=== PATIENT | female | born 1935 ===

== ENCOUNTER 2025-05-07 00:15 | Inpatient (IN) | payer MEDICARE, OTHER, SELFPAY ==
[2025-05-07] VITALS (17 sets, daily range): BP systolic 135–169; BP diastolic 41–92; BMI 28.5
[2025-05-07 00:44] LABS: Glucose - Point of Care 152 mg/dl (70-99)
--- NOTE | 2025-05-07 01:07 | HPS.HSE ---
Family Physician
-
Family Physician: Mely Campuzano
Chief Complaint
-
CP / SOB
History of Present Illness
Patient is an 89y F with PMH significant for ASCVD, hypertension, DM-II and MDS who presents to in transfer from [facility] for evaluation of multivessel CAD. Patient initially presented to [facility] on 05/03 with complaints of chest pain and SOB. She was
evaluated and symptoms initially attributed to symptomatic anemia from MDS. Patient received 1 unit of PRBCs transfusion during her stay. Her troponin was significantly elevated (230 - normal < 13). A stress test was recommended and was abnormal
with patient complaining of headache, chest pain and dyspnea during the test as well. She went for cardiac catheterization on 05/06 which revealed multivessel coronary disease as well as moderate - severe aortic stenosis +/- aortic regurgitation.
Patient was transferred to for further evaluation.
At the time of my examination patient is resting comfortably. She has no complaints. She denies any current chest pain or dyspnea.
No N/V.
Patient states that she has had SOB in the past related to MDS / anemia - but has not previously had chest pain associated with this.
She does have remote history of PR in 1982.
Medical History
Past Medical History
Past Medical History: Reports Other
Additional Past Medical History:
ASCVD (PR 1982)
Paroxysmal Atrial Fibrillation
Chronic HFpEF
Aortic Stenosis
Hypertension
CKD III
DM-II
MDS
Hypothyroidism
Diverticular Disease
Glaucoma
Past Surgical History: Reports Other
Additional Past Surgical History:
Bilateral GUALBERTO
Rotator Cuff Surgery
Cholecystectomy
Partial Colectomy (Diverticular Disease)
Social History
Tobacco: Former Smoker (Quit smoking 40y ago.)
Alcohol: None
Drug: None
Family History
Family History: Not pertinent
Allergies / Home Medications
Allergies reflects when Allergies were last updated in [employer].
Home Medications with original date entered in [employer]
Allergy/Medication List:
Allergies
Allergy/AdvReac Type Severity Reaction Status Date / Time
levofloxacin (From Levaquin) Allergy Unknown Verified 05/07/25 00:23
Home Medications
amiodarone 200 mg tablet 200 mg PO DAILY 05/07/25
aspirin 81 mg capsule 81 mg PO DAILY 05/07/25
atorvastatin 40 mg tablet 40 mg PO DAILY 05/07/25
cyanocobalamin (vitamin B-12) 1,000 mcg tablet (Vitamin B-12) 1,000 mcg PO 1XD 05/07/25
darbepoetin betina-albumin 200 mcg/0.4 mL in albumin injection syringe 200 mcg 05/07/25
empagliflozin 10 mg tablet (Jardiance) 10 mg PO DAILY 05/07/25
furosemide 40 mg tablet 40 mg PO BID 05/07/25
isosorbide mononitrate 60 mg tablet,extended release 24 hr 60 mg PO DAILY 05/07/25
losartan 50 mg tablet 50 mg PO DAILY 05/07/25
metoprolol succinate 100 mg capsule sprinkle, ext. release 24 hr 100 mg PO Q12H 05/07/25
omeprazole 40 mg capsule,delayed release 40 mg PO 1XD 05/07/25
Review of Systems
-
History Source: Patient
A 12 point ROS was completed and negative except as noted: Yes
Constitutional: Denies Fever
Respiratory: Denies Cough or Trouble Breathing
Cardiac: Denies Chest Pain or Palpitations
Abdomen/GI: Denies Abdominal Pain, Nausea, Vomiting or Diarrhea
: Denies Dysuria, Frequency or Flank Pain
Musculoskeletal: Denies Joint Pain or Edema
Neurological: Denies Dizzy or Headache
Physical Exam
Vital Signs
Vital Signs
Pulse BP
66 141/92
05/07/25 00:21 05/07/25 00:21
Physical Exam
General: Other (89y F in no acute distress.)
HEENT: Moist mucous membranes and PERRLA
Respiratory: Clear; No Wheezes, Rales or Rhonchi
Cardiac: S1/S2, Regular Rhythm and Murmur (IV/ RADHA)
GI: Soft, Non Tender, Non Distended and Normal Bowel Sounds
Musculoskeletal: No Clubbing, No Cyanosis and No Edema
Neuro: AO x 3
Impression/Plan
-
A/P: Patient is an 89y F with PMH significant for ASCVD, HTN, DM-II and MDS who presents to in transfer from [facility] for evaluation of multivessel coronary disease.
ASCVD
ACS / NSTEMI
Multivessel Coronary Artery Disease
Aortic Stenosis +/- Aortic Regurgitation
- Admit to IVU for further evaluation and treatment.
- IV heparin infusion for now with multivessel coronary disease, elevated troponin, etc.
- Continue ASA, statin, etc.
- Cardiology evaluation for additional recommendations / options.
- Patient informs me that she would not be interested in any CT Surgery / open interventions.
- Pain free at present. Monitor for any new / recurrent symptoms.
MDS
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
- Check labs now. Hgb 8.3 at [facility].
- Follow H&H for any changes. No evidence of recent blood loss, etc.
- Transfuse if needed to keep Hgb > 8 given coronary disease / ACS.
Chronic HFpEF
- Stable. Patient does not appear grossly volume overloaded at present.
- Continue current PO Lasix dosing for now.
- Follow I/Os, daily weights, etc.
- Echo at [facility] with LVEF = 55-60% and moderate .
Benign Hypertension
- Continue current med regimen with holding parameters.
DM-II
- Stable. Hold low-dose Lantus while NPO.
- SSI coverage as needed. Update A1C.
Hypothyroidism
- Stable. Continue T4 supplementation.
Possible UTI
- Patient on ceftriaxone at [facility] for abnormal urinalysis.
- No culture results noted in records.
- Patient denies any urinary symptoms / complaints.
- Repeat UA +/- culture.
Glaucoma
- Continue usual eye drops.
DVT Prophylaxis: On IV Heparin at present.
Code Status: Full
--- NOTE | 2025-05-07 01:30 | PTCARENOTE ---
Received patient from EMS. Report never received from [facility], called for report following patients arrival. SR on the monitor, HR in the 50s. VSS, 2L nasal cannula for comfort. Alert and oriented. Oriented pt to room and plan of care, pt
verbalizes understanding. R radial and brachial cath sites CDI. No complaints from pt at this time, call quesada within reach.
[2025-05-07] MEDS: HEPARIN 4000 UNITS IV (01:52)
[2025-05-07] MEDS: TOPROL XL 50 MG PO ×2 (01:53→14:05)
[2025-05-07] MEDS: HEPARIN 25000 UNITS/250 ML IV (01:54)
[2025-05-07 02:49] LABS: APTT 33.9 Sec (23.4-35.0); Hematocrit 24.6 % (37.0-47.0); Hemoglobin 7.2 g/dL (12.0-16.0); Mean Corp Hgb Conc. 29.3 g/dL (33.0-37.0); Mean Corpuscular Volume 101.7 fL (81.0-99.0); Platelet Count 160 10^3/uL (130-400); Red Cell Dist. Width 23.6 % (11.5-14.5)
[2025-05-07 02:54] LABS: Blood Urea Nitrogen 25 mg/dl (7-17); Calcium 8.1 mg/dl (8.4-10.2); Carbon Dioxide 23 mmol/L (22-30); Chloride 113 mmol/L (98-107); Estimated Creatinine Clearance 28 ml/min; Glucose 138 mg/dl (70-99); HDL Cholesterol 23 mg/dl; LDL Cholesterol, Calculated 19 mg/dl; Potassium 3.7 mmol/L (3.5-5.1); Sodium 144 mmol/L (135-145); Very Low Density Lipoprotein 28 mg/dl (0-30); eGFR 39.55
--- NOTE | 2025-05-07 03:13 | W.PN.UPDATE ---
Update Note
Progress Note Update
hgb 7.2, vital signs within baseline, no signs of bleeding. Blood consent signed, type and screen and one unit of blood ordered .
[2025-05-07 03:16] LABS: Troponin I 0.380 ng/ml
[2025-05-07] MEDS: TYLENOL 650 MG PO (04:03)
[2025-05-07] MEDS: SYNTHROID 50 MCG PO (06:32)
--- NOTE | 2025-05-07 07:35 | CON.CAR ---
Addendum entered and electronically signed by Jf Dhaliwal MD 05/07/25 11:03:
89-year-old woman transferred from [facility] for further evaluation in the setting of moderate to severe aortic stenosis and multivessel CAD including left main disease. Hemoglobin 7.2 on transfer. 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
hypothyroidism, glaucoma
Current medications: Aspirin 81 mg a day, IV heparin, amiodarone 200 mg a day, atorvastatin 40 mg a day, furosemide 40 mg p.o. twice daily, metoprolol ER 50 mg every 12, isosorbide mononitrate, Xalatan, levothyroxine, timolol, pantoprazole
149/48, pulse 71, resp rate 20, afebrile, pleasant, no acute distress states she is dyspneic when walking aortic stenosis murmur, JVD okay, not much edema abdomen benign, neuro nonfocal, musculoskeletal intact.
ECG sinus rhythm, inferior UT, probable anterior UT, left axis
Hemoglobin 7.2, MCV is 101.7, platelets are 160, normal WBC, potassium 3.7, BUN and creatinine are 25 and 1.3, free T4 is 1.82, troponin is 0.38 and 0.28, LDL is 19
Echocardiogram 08/2023: EF 55%, distal septal and apical hypokinesis, normal RV, dilated left atrium, severe MAC, mean gradient 2.5 mmHg, trace MR, mild to moderate aortic stenosis, mean gradient 18 mmHg, normal pulmonary artery systolic pressure
Impression:
Multivessel and left main coronary artery disease
Elevated troponin/non-ST segment elevation UT
Moderate to severe aortic stenosis
Paroxysmal atrial fibrillation in sinus rhythm on amiodarone, not anticoagulated
Transfusion dependent myelodysplasia
Chronic HFpEF
Hypothyroidism, hypertension, hyperlipidemia, diabetes, diverticulitis, hip replacement, recent parainfluenza
Plan:
She presents with a very complex picture of multivessel and left main coronary disease with aortic stenosis, which in the absence of multiple comorbidities would be best managed with SAVR and CABG. However, she is very clear she does not want
surgery, and in addition age, MDS with transfusion dependent anemia functional status may likely make surgery a prohibitive risk.
At present she has no chest discomfort, has some dyspnea on exertion. She is on oral furosemide will check proBNP. Volume status remains somewhat overloaded will give IV Lasix x 1 in concert with her transfusion.
Spironolactone may be an option. SGLT2 antagonist could be an option.
Continue IV heparin.
Patient to get transfused.
We will review her most recent echocardiogram.
Will await evaluation by CT surgery and interventional cardiology.
Original Note:
Consultation
Consultation Request
Date/Time Consultation Performed: 05/07/25
Requesting Provider: Dr. Gibbs
Performing Provider: Shayy Sunshine PA-C for Dr. JACQUE Dhaliwal
Reason for Consultation: MV CAD,
Medical History
-
Chief Complaint: MV CAD
History of Present Illness:
Patient is an 89-year-old female with past medical history of UT in 1982 without revascularization, paroxysmal atrial fibrillation on chronic amiodarone, MDS requiring periodic transfusions, not anticoagulated due to MDS and frequent falls, chronic
heart failure with preserved EF, moderate to severe , recent parainfluenza, hypothyroidism, who is followed by [facility] cardiology. She then presented to [facility] on 05/03/2025 with chest discomfort and shortness of breath. Initially acute
on chronic symptomatic anemia was felt to be etiology of her symptoms and received transfusion. GI had also evaluated patient and she was not felt to have any active GI bleeding. As troponins were significantly elevated, she underwent stress
testing which was noted to be abnormal with patient complaining of chest discomfort and dyspnea during the test. She then underwent cardiac catheterization by Dr. Cronin on 05/06/2025 which revealed multivessel coronary artery disease including
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 Due to this patient was transferred to [facility] last
evening for evaluation of treatment options for MV CAD and . She denies current chest pain or shortness of breath. Currently receiving blood transfusion, hemoglobin 7.2 on 05/07.
PMH:
CAD
Remote UT in 1982 without revascularization
Chronic angina
Paroxysmal atrial fibrillation
Chronic amiodarone therapy
Not anticoagulation candidate given chronic anemia, frequent falls
MDS requiring periodic transfusions
Chronic heart failure with preserved EF
Moderate to severe
Hypothyroidism
Hypertension
Hyperlipidemia
DM2
Recurrent diverticulitis status post partial colon resection
Fall with left knee fracture status postrepair
Bilateral total hip replacements
Recent parainfluenza requiring admission to [facility] 03/2025
Past Medical History
Past Medical History: Other (in HPI)
Social History
Tobacco: Non-Smoker
Alcohol: None
Personal:
Living: With Family
Family History
Family History: CAD (in father and brothers)
Allergies / Home Medications
Allergy/AdvReac Type Severity Reaction Status Date / Time
levofloxacin (From Levaquin) Allergy Unknown Verified 05/07/25 00:23
�Medication �Instructions �Recorded �Confirmed �Type
amiodarone 200 mg tablet 200 mg PO DAILY 05/07/25 05/07/25 History
aspirin 81 mg capsule 81 mg PO DAILY 05/07/25 05/07/25 History
atorvastatin 40 mg tablet 40 mg PO DAILY 05/07/25 05/07/25 History
cyanocobalamin (vitamin B-12) 1,000 mcg PO 1XD 05/07/25 05/07/25 History
1,000 mcg tablet (Vitamin B-12)
empagliflozin 10 mg tablet 10 mg PO DAILY 05/07/25 05/07/25 History
(Jardiance)
furosemide 40 mg tablet 40 mg PO BID 05/07/25 05/07/25 History
isosorbide mononitrate 60 mg 60 mg PO DAILY 05/07/25 05/07/25 History
tablet,extended release 24 hr
losartan 50 mg tablet 50 mg PO DAILY 05/07/25 05/07/25 History
metoprolol succinate 100 mg 100 mg PO Q12H 05/07/25 05/07/25 History
capsule sprinkle, ext. release 24
hr
omeprazole 40 mg capsule,delayed 40 mg PO 1XD 05/07/25 05/07/25 History
release
Review of Systems
-
History Source: Patient
All other systems: Negative unless noted
Physical Exam
Vital Signs
Temp Pulse Resp BP Pulse Ox
98.1 F 72 20 151/46 90
05/07/25 07:05 05/07/25 06:41 05/07/25 07:05 05/07/25 06:41 05/07/25 07:05
Lab Results
05/07/25 01:46
05/07/25 01:46
Troponin I 0.380 ng/ml H* 05/07/25 01:46
Physical Exam
General: No Apparent Distress and Comfortable
HEENT: Normocephalic, Anicteric and Moist Mucous Membranes
Respiratory: Crackles (B/L bases) and Non Labored Respirations
Cardiac: S1/S2, Regular Rhythm and Murmur
GI: Soft, Non Tender, Non Distended and Normal Bowel Sounds
Musculoskeletal: No Clubbing, No Cyanosis and Edema (trace of B/L LE)
Skin: Warm and Dry
Neuro: AO x 3
Impression / Plan
-
Primary Occupational Health Nursing Director: Previously Dr. Zhou, most recently Dr. Reyes
Assessment:
Presentation to [facility] 05/03/25 with CP, dyspnea
UTI
CAD
Remote UT in 1982 without revascularization
Chronic angina
MV CAD by cath 05/06/25 at [facility]
Paroxysmal atrial fibrillation
Chronic amiodarone therapy
Not anticoagulation candidate given chronic anemia, frequent falls
MDS requiring periodic transfusions
Chronic heart failure with preserved EF
Moderate to severe
Hypothyroidism
Hypertension
Hyperlipidemia
DM2
CKD
Recurrent diverticulitis status post partial colon resection
Fall with left knee fracture status postrepair
Bilateral total hip replacements
Recent parainfluenza requiring admission to [facility] 03/2025
Myoview stress test 05/06/2025: Resting study only performed on patient. After injection, patient developed 04/19 chest pressure and dyspnea with EKG changes. Resting imaging showed evidence of dense apical defect at rest
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
Echocardiogram 05/04/2025: EF 55 to 60%, grade 2 diastolic dysfunction, abnormal apex, moderate , moderate thickening and calcification of posterior mitral valve leaflet with mild MS
Plan:
-Patient was admitted to [facility] 05/03/2025 due to chest pain and dyspnea in setting of recent parainfluenza and was noted to have acute on chronic anemia. Also had elevated troponin with initial concern for demand ischemia due to
worsening hemoglobin status post transfusion, however with elevated troponins underwent stress testing however only resting portion completed as with injection patient developed symptoms of chest pressure and dyspnea with associated EKG changes and
resting imaging showed dense apical defect. Underwent cardiac catheterization 05/06 which showed multivessel coronary disease as above as well as moderate to severe low gradient . Patient was transferred to [facility] 05/06/2025 for
evaluation of treatment options for coronary artery and valve disease.
- reviewed all available records from [facility] admission including testing as noted above
- Currently chest pain-free
- On IV heparin, aspirin
- Hemoglobin 7.2, receiving transfusion. She is followed as outpatient by Dr. Alvarado of [facility] heme/onc
- Check proBNP. Suspect remains with evidence of volume overload. Currently on outpatient dosing of p.o. Lasix 40 mg twice daily. will hold p.o. and give IV dose in setting of extra volume with transfusion
- we discussed results of cardiac catheterization today. reviewed plan for multidisciplinary discussions regarding best treatment options. reviewed that she is higher risk for interventions given comorbidities including MDS requiring periodic
transfusions. plt count noted to be normal. she states she does not want bypass surgery. will await options offered by CT surgery and IC and can determine best way to proceed. at this point appears she is leaning toward medical therapy
- in SR on review of tele. continue amiodarone. she is not anticoagulated given falls and MDS with chronic anemia
- continue toprol, imdur
- continue lipitor
- d/w nursing
Data Reviewed
-
EKG: Tracing Personally Visualized and interpreted
Medical Tests (Nuc Med, Echo etc): Report Reviewed by me
Labs: Labs Reviewed by me
Old Records: Reviewed
[2025-05-07] MEDS: PACERONE 200 MG PO (07:59)
[2025-05-07] MEDS: PROTONIX 40 MG PO (07:59)
[2025-05-07] MEDS: LASIX 40 MG PO (07:59)
[2025-05-07] MEDS: LOW STRENGTH ASPIRIN 81 MG PO (07:59)
[2025-05-07] MEDS: IMDUR (EXTENDED RELEASE) 60 MG PO (08:00)
[2025-05-07] MEDS: LIPITOR 40 MG PO (08:00)
[2025-05-07] MEDS: TIMOPTIC 0.5% OPHTHALMIC SOLUTION 1 DROP BOTH EYES (08:01)
[2025-05-07 08:42] LABS: APTT 73.4 Sec (23.4-35.0)
[2025-05-07 08:54] LABS: Glucose - Point of Care 130 mg/dl (70-99)
[2025-05-07 09:00] LABS: Troponin I 0.278 ng/ml
[2025-05-07 09:08] LABS: Absolute Neutrophils -Man Diff 4.8 10^3/uL (1.4-6.5)
[2025-05-07 09:09] LABS: Anisocytosis 2+; Hypochromasia 1+; Macrocytosis Slight; Normal RBC Morphology No; Ovalocytes Slight; Platelets Checked Yes; Polychromasia Slight; Total Cells Counted 100
[2025-05-07 09:59] LABS: Glycohemoglobin (HgbA1c) 5.2 % (4.0-5.6)
--- NOTE | 2025-05-07 10:41 | CM ---
Reviewed chart. Met with Mrs. Lomeli to review discharge plans. She states prior to admission she resides with her spouse and son in a one story home with three steps to enter. She states prior to admission she ambulates with a single point
cane and independent with adls. She states she has a single point cane, walker and wheelchair at home. She states she is current with [facility]. She states she has a prescription plan with . Will need to see her current
functional level to see if she will need any skilled care needs. Medical work-up in progress. The discharge plan is to return home with her spouse and son with res[facility] of [facility] when medically stable. .
[2025-05-07] MEDS: NOVOLOG FLEXPEN-LOW RESISTANCE SC ×2 (10:49→12:45)
[2025-05-07] MEDS: LASIX 40 MG IV (10:57)
--- NOTE | 2025-05-07 11:29 | CON.ONC ---
Consultation
-
Date Consultation Requested: 05/07/25
Date Consultation Performed: 05/07/25
Requesting Provider: Shayy Beach PA-C
Performing Provider: Dr. Kadeem Ortiz
Reason for Consultation: MDS
Impression
Impression
CAD with multivessel disease a/w abnormal stress test
frequent falls
MDS diagnoed 3 years ago -PRBC dependent anemia
Plan
Plan
recommend transfuse PRBC for Hgb <8 with CAD and hx symptomatic anemia
no contraindication for antiplatelet or anticoagulation from a MDS perspective with normal platelets and absence of bleeding
she will continue with OP labs for prn transfusion support and LANDRY with her primary oncologist at discharge
no further inpatient recommendations, medical oncology will sign off. please reach out with any further questions or concerns.
Patient History
History of Present Illness
89yo F who presented to as a transfer for evaluation of multivessel disease. She initially presented with SOB and chest pain to [facility]. Her symptoms did not improve with PRBC transfusion. Her troponin was significally elevated, stress test was
abnormal with c/o headach, chest pain and dyspenea during her testing. Her cardiac catheterization on 05/06 showed multivessel coronary disease as well as moderate - severe aortic stenosis +/- aortic regurgitation. Medical oncology is consulted
regarding her MDS.
In brief, this pt is known to [facility] medical oncology. She tells me that she was diagnosed 3 years ago with MDS. She has labs checked at home 1-2 da/week that are reviewed by her primary oncologist. She is treated with LANDRY, IV iron prn, and
transfusion support prn for her anemia. She also takes B12 and folic acid. Her CBC shows a normal WBC and platelet count.
Past-Medical/Surgical History
PMH ASCVD ([place] 1982)
Paroxysmal Atrial Fibrillation
Chronic HFpEF
Aortic Stenosis
Hypertension
CKD III
DM-II
MDS
Hypothyroidism
Diverticular Disease
Glaucoma
PSH
Bilateral GUALBERTO
Rotator Cuff Surgery
Cholecystectomy
Partial Colectomy (Diverticular Disease)
Social former smoker, denies etoh or recreational drugs
Family
Patient Medication
�Medication �Instructions �Recorded �Confirmed �Last Taken �Type
amiodarone 200 mg tablet 200 mg PO DAILY 05/07/25 05/07/25 Unknown History
aspirin 81 mg capsule 81 mg PO DAILY 05/07/25 05/07/25 Unknown History
atorvastatin 40 mg tablet 40 mg PO DAILY 05/07/25 05/07/25 Unknown History
cyanocobalamin (vitamin B-12) 1,000 mcg PO 1XD 05/07/25 05/07/25 Unknown History
1,000 mcg tablet (Vitamin B-12)
empagliflozin 10 mg tablet 10 mg PO DAILY 05/07/25 05/07/25 Unknown History
(Jardiance)
furosemide 40 mg tablet 40 mg PO BID 05/07/25 05/07/25 Unknown History
isosorbide mononitrate 60 mg 60 mg PO DAILY 05/07/25 05/07/25 Unknown History
tablet,extended release 24 hr
losartan 50 mg tablet 50 mg PO DAILY 05/07/25 05/07/25 Unknown History
metoprolol succinate 100 mg 100 mg PO Q12H 05/07/25 05/07/25 Unknown History
capsule sprinkle, ext. release 24
hr
omeprazole 40 mg capsule,delayed 40 mg PO 1XD 05/07/25 05/07/25 Unknown History
release
Active Medications
Generic Name Dose Route Start Last Admin
Trade Name Freq PRN Reason Stop Dose Admin
Acetaminophen 650 mg 05/07/25 01:25 05/07/25 04:03
Acetaminophen 325 Mg Tablet PO 06/04/25 01:24 650 mg
Q4HPRN PRN Administration
Mild Pain / Temp > 101
Amiodarone HCl 200 mg 05/07/25 08:00 05/07/25 07:59
Amiodarone 200 Mg Tablet PO 06/04/25 07:59 200 mg
DAILY KATE Administration
Aspirin 81 mg 05/07/25 08:00 05/07/25 07:59
Aspirin 81 Mg Chewable Tablet PO 06/04/25 07:59 81 mg
DAILY KATE Administration
Atorvastatin Calcium 40 mg 05/07/25 08:00 05/07/25 08:00
Atorvastatin (Lipitor) 40 Mg Tablet PO 06/04/25 07:59 40 mg
DAILY KATE Administration
Dextrose 12.5 grams 05/07/25 01:25
Dextrose 50% (0.5 Grams/Ml) 50 Ml Syringe IV 06/04/25 01:24
[id number] PRN
hypoglycemia
Protocol
Furosemide 40 mg 05/07/25 08:00 05/07/25 07:59
Furosemide 40 Mg Tablet PO 06/04/25 07:59 40 mg
On Hold: 05/07/25 10:32 BID KATE Administration
Glucagon 1 mg 05/07/25 01:25
Glucagon 1 Mg Vial IM 06/04/25 01:24
PRN PRN
hypoglycemia
Protocol
Heparin Sodium 25,000 units in 250 mls @ 0 mls/hr 05/07/25 01:30 05/07/25 01:54
Heparin 36795 Units/250 Ml IV 250 mls
PER PROTOCOL KATE Administration
Protocol
Per Protocol
Insulin Aspart 0 units 05/07/25 07:30 05/07/25 10:49
Insulin Aspart Low Resistance 300 Units/3 Ml Pen.Injctr SC 06/04/25 07:29 Not Given
AC KATE
Protocol
Isosorbide Mononitrate 60 mg 05/07/25 08:00 05/07/25 08:00
Isosorbide Mononitrate 60 Mg Extended Release Tablet PO 06/04/25 07:59 60 mg
DAILY KATE Administration
Latanoprost 0 drop 05/07/25 22:00
Latanoprost 0.005% (Ophthalmic Solution) 2.5 Ml Bottle BOTH EYES 06/04/25 21:59
HS KATE
Levothyroxine Sodium 50 mcg 05/07/25 06:00 05/07/25 06:32
Levothyroxine 50 Mcg Tablet PO 06/04/25 05:59 50 mcg
DAILY @ 0600 KATE Administration
Metoprolol Succinate 50 mg 05/07/25 02:00 05/07/25 01:53
Metoprolol 50 Mg Extended Release Tablet PO 06/04/25 01:59 50 mg
Q12H KATE Administration
Morphine Sulfate 2 mg 05/07/25 01:25
Morphine 2 Mg/Ml Syringe IV 05/21/25 01:24
Q4HPRN PRN
Severe Pain
Nitroglycerin 0.4 mg 05/07/25 01:25
Nitroglycerin 0.4 Mg Sl Tablet SL 06/04/25 01:24
[id number] PRN
Chest Pain
Pantoprazole Sodium 40 mg 05/07/25 08:00 05/07/25 07:59
Pantoprazole 40 Mg Delayed Release Tablet PO 06/04/25 07:59 40 mg
DAILY KATE Administration
Timolol Maleate 0 drop 05/07/25 08:00 05/07/25 08:01
Timolol 0.5% (Ophthalmic Solution) Bottle BOTH EYES 06/04/25 07:59 1 drop
DAILY KATE Administration
Review of Systems
-
ROS is notable for HPI, otherwise negative
Physical Exam
-
General: No Apparent Distress
HEENT: Moist Mucous Membranes; Negative Jaundice
Pulmonary: Other (unlabored)
GI: Soft
Extremities: Pulses Present and Edema (trace ankle)
Neurology: Non Focal
Skin: Warm
Psych: Calm
Labs
Lab Results
WBC 6.8 10^3/uL (4.8-10.8) 05/07/25 01:46
RBC 2.42 10^6/uL (4.20-5.40) L 05/07/25 01:46
Hgb 7.2 g/dL (12.0-16.0) L 05/07/25 01:46
Hct 24.6 % (37.0-47.0) L 05/07/25 01:46
MCV 101.7 fL (81.0-99.0) H 05/07/25 01:46
MCH 29.8 pg (27.0-31.0) 05/07/25 01:46
MCHC 29.3 g/dL (33.0-37.0) L 05/07/25 01:46
RDW 23.6 % (11.5-14.5) H 05/07/25 01:46
Plt Count 160 10^3/uL (130-400) 05/07/25 01:46
MPV 12.7 fL (7.4-10.4) H 05/07/25 01:46
Creatinine 1.3 mg/dL (0.6-1.0) H 05/07/25 01:46
Creatinine Cancelled 05/07/25 01:46
Vital Signs
Vital Signs
Temp Pulse Resp BP Pulse Ox
98.4 F 67 18 148/51 95
05/07/25 10:16 05/07/25 11:00 05/07/25 10:16 05/07/25 11:00 05/07/25 10:16
[2025-05-07 11:38] LABS: Glucose - Point of Care 129 mg/dl (70-99)
[2025-05-07 11:50] LABS: Urine Character Clear (Clear)
--- NOTE | 2025-05-07 12:28 | W.PN.HOSP.TC ---
Today's Communication/Plan
-
ACS protocol. Blood transfusion.
Assessment / Plan
Assessment / Plan
Physical exam:
General: Acute on chronically ill
HEENT: Normocephalic, Atraumatic and Moist Mucous Membranes
Respiratory: Clear to Auscultation; Negative Wheezes, Rales or Rhonchi
Cardiac: Regular Rhythm and S1/S2
GI: Soft, Nontender and Nondistended
Musculoskeletal: No Clubbing, No Cyanosis and No Edema
Neuro: Awake, Alert and Oriented, no neurological deficit
Psych: Calm
A/P:
ASCVD
ACS / NSTEMI
Multivessel Coronary Artery Disease
Aortic Stenosis +/- Aortic Regurgitation
- Admit to IVU for further evaluation and treatment.
- IV heparin infusion for now with multivessel coronary disease, elevated troponin, etc.
- Continue ASA, statin, etc.
- Cardiology evaluation for additional recommendations / options. Cardiology evaluated the patient today and it appears that she is leaning towards medical management.
- Patient informs me that she would not be interested in any CT Surgery / open interventions.
- Pain free at present. Monitor for any new / recurrent symptoms.
MDS
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
- Check labs now. Hgb 8.3 at [facility]. Follow-up hemoglobin 7.2. Blood transfusion ordered for today. Hematology consulted and noticed that she is blood transfusion dependent.
- Follow H&H for any changes. No evidence of recent blood loss, etc.
- Transfuse if needed to keep Hgb > 8 given coronary disease / ACS.
Chronic HFpEF
- Stable. Patient does not appear grossly volume overloaded at present.
- On hold PO Lasix dosing for now. IV Lasix given this morning by cardiology.
- Follow I/Os, daily weights, etc.
- Echo at [facility] with LVEF = 55-60% and moderate .
Benign Hypertension
- Continue current med regimen with holding parameters.
DM-II
- Stable. Hold low-dose Lantus while NPO.
- SSI coverage as needed. Update A1C.
Hypothyroidism
- Stable. Continue T4 supplementation.
Possible UTI
- Patient on ceftriaxone at [facility] for abnormal urinalysis.
- No culture results noted in records.
- Patient denies any urinary symptoms / complaints.
- Repeat UA +/- culture.
- Will likely stop antibiotics and observe off antimicrobial
Glaucoma
- Continue usual eye drops.
DVT Prophylaxis: On IV Heparin at present.
Code Status: Full
Time spent 35 minutes
Anticipated Discharge: > 48 hours
Subjective/Interval History
-
Date of Service: May 07, 2025
Patient still having some shortness of breath earlier this morning. No chest pain. Afebrile
Objective Data
-
Labs:
Laboratory Results
05/07/25 05/07/25 05/07/25
01:45 01:46 01:46
WBC Cancelled 6.8
Hgb Cancelled 7.2 L
Hct Cancelled 24.6 L
Plt Count Cancelled 160
APTT 33.9
Sodium Cancelled 144
Potassium Cancelled
Chloride
Carbon Dioxide
BUN
Creatinine
Glucose
Calcium
05/07/25 05/07/25 05/07/25
01:46 01:46 01:46
WBC
Hgb
Hct
Plt Count
APTT
Sodium
Potassium 3.7
Chloride Cancelled 113 H
Carbon Dioxide Cancelled 23
BUN Cancelled
Creatinine
Glucose
Calcium
05/07/25 05/07/25 05/07/25
01:46 01:46 01:46
WBC
Hgb
Hct
Plt Count
APTT
Sodium
Potassium
Chloride
Carbon Dioxide
BUN 25 H
Creatinine Cancelled 1.3 H
Glucose Cancelled 138 H
Calcium Cancelled
05/07/25 05/07/25 05/07/25
01:46 08:21 14:30
WBC
Hgb
Hct
Plt Count
APTT 73.4 H Pending
Sodium
Potassium
Chloride
Carbon Dioxide
BUN
Creatinine
Glucose
Calcium 8.1 L
Vital Signs:
Vital Signs
Temp Pulse Resp BP Pulse Ox
98.4 F 67 18 148/51 95
05/07/25 10:16 05/07/25 11:00 05/07/25 10:16 05/07/25 11:00 05/07/25 10:16
I&O
05/06/25 05/07/25 05/08/25
06:59 06:59 06:59
Intake Total 0 / 0 525 / 525
Output Total 450 / 450
Balance 0 / 0 75 / 75
[2025-05-07 14:28] LABS: APTT 46.4 Sec (23.4-35.0)
--- NOTE | 2025-05-07 16:40 | CARDSERVLU ---
Echocardiogram with Lumason completed after protocol screening completed. Allergies verified.
Patent IV site: _R hand____
IV site flushed with 0.9% NaCl pre and post administration.
Diluted bolus method utilized to enhance visualization of ventricular disla.
Total volume given: __4__ mL
Patient tolerated all procedures well without complications.
[2025-05-07 16:47] LABS: Glucose - Point of Care 152 mg/dl (70-99)
[2025-05-07] MEDS: NOVOLOG FLEXPEN-LOW RESISTANCE 1 UNITS SC (18:35)
--- NOTE | 2025-05-07 19:02 | PTCARENOTE ---
~0223-4277: Handoff report received from [facility] RN. Pt Aox4, forgetful at times, Baseline L facial droop present as residual from hx of CVA, NSR 1st degree AVB 60s-80s on tele, + murmur present, SBP 150s, RA satting 95%, crackles at bases. Pt
does not c/o pain at this time. Ax1 to bathroom with walker. PRBC infusing at start of shift and finished around 1015, VS remained stable. Shayy Sunshine PA-C at bedside to discuss options with patient and informed this RN as well. Update given to
daughter via phonecall. Heparin gtt infusing at this time. Bloodwork drawn and sent to lab. PTT therapeutic at this time. UA sent to lab. All needs met at this time, call quesada within reach.
~7022-7405: IV lasix given per order post transfusion completion. Bloodwork drawn and sent to lab. PTT resulted and heparin gtt titrated per protocol. ProBNP 7840, Shayy Sunshine PA-C made aware. Family at bedside and patient informed this RN that
Dr. Morales wanted to talk to family, informed Dr. Morales of their arrival. Patient resting comfortably in the chair at this time.
~[id number]: ECHO completed.
~[id number]: Patient Ax1 with walker to to bathroom. heparin gtt remains infusing. VSS. All needs met at this time, call quesada within reach. handoff report given to [facility] RN.
--- NOTE | 2025-05-07 20:45 | PTCARENOTE ---
Assumed care at 1900. Patient alert and oriented x4. Forgetful at times. Patient denies any pain or shortness of breath. Patient remains normal sinus rhythm on tele. Heparin gtt infusing as ordered. Ambulated to bathroom with walker and standby
assist. Tolerated well. Patient aware of plan of care. Call quesada and personal belongings within reach.
[2025-05-07] MEDS: XALATAN OPHTHALMIC SOLUTION 1 DROP BOTH EYES (21:22)
[2025-05-07 21:47] LABS: APTT 67.9 Sec (23.4-35.0)
[2025-05-07 22:19] LABS: Glucose - Point of Care 174 mg/dl (70-99)
[2025-05-08] VITALS (18 sets, daily range): BP systolic 132–167; BP diastolic 41–63; BMI 27.9
[2025-05-08] MEDS: TOPROL XL 50 MG PO ×3 (03:06→20:24)
[2025-05-08] MEDS: HEPARIN 25000 UNITS/250 ML IV (03:08)
[2025-05-08] MEDS: TYLENOL 650 MG PO ×2 (04:44→20:23)
[2025-05-08 05:06] LABS: APTT 100.0 Sec (23.4-35.0)
[2025-05-08 05:10] LABS: Hematocrit 28.8 % (37.0-47.0); Hemoglobin 8.8 g/dL (12.0-16.0); Mean Corp Hgb Conc. 30.6 g/dL (33.0-37.0); Mean Corpuscular Volume 99.7 fL (81.0-99.0); Platelet Count 173 10^3/uL (130-400); Red Cell Dist. Width 22.5 % (11.5-14.5)
[2025-05-08 05:26] LABS: Blood Urea Nitrogen 20 mg/dl (7-17); Calcium 8.3 mg/dl (8.4-10.2); Carbon Dioxide 24 mmol/L (22-30); Chloride 113 mmol/L (98-107); Estimated Creatinine Clearance 30 ml/min; Glucose 155 mg/dl (70-99); Magnesium 2.1 mg/dl (1.6-2.3); Potassium 3.8 mmol/L (3.5-5.1); Sodium 143 mmol/L (135-145); eGFR 43.54
[2025-05-08] MEDS: SYNTHROID 50 MCG PO (06:27)
--- NOTE | 2025-05-08 08:14 | W.PN.UPDATE ---
Update Note
Progress Note Update
Interventional cardiology update note
I sat down and spoke with patient as well as her family multiple times on May 07, 2025 discussing her coronary anatomy, her presentation and discussing possible treatment options including medical therapy only versus high risk complex PCI versus
coronary artery bypass grafting.
We agree that with her advanced age and other significant comorbid conditions that she would not be a good coronary artery bypass grafting candidate and patient would prefer not to have open heart surgery anyway.
In discussion about medical therapy only versus high risk complex PCI with possible atherectomy and need for dual antiplatelet therapy for at least 1 year our discussions included the fact that she has transfusion dependent anemia due to her
underlying MDS though her platelet counts are normal that we would initially want input from hematology and oncology in regards to overall prognosis and safety of dual antiplatelet therapy and high risk procedures. Secondly, if patient were to even
consider excepting the risk of a high risk procedure and want aggressive interventions we would want to trial her at least on 2 weeks of dual antiplatelet therapy to make sure that she is able to maintain her blood counts. With her underlying
moderate to severe aortic stenosis, there is a good chance that we may have to use Impella support given possibility/need for atherectomy and in the setting we would also want to pursue a CTA of abdomen and pelvis to make sure that her iliofemoral
arteries would allow for Impella placement safely.
I would also work on getting her hemoglobin close to 10 in the setting of severe underlying coronary artery disease and advocate for more blood transfusions.
After discussing all of the risk and benefits of each of the approach, patient and family for now leaning towards aggressive medical therapy excepting a higher risk of Mace events with this approach.
We will work on optimizing medications with close monitoring of her blood counts and work on discharge planning.
Valentine Morales MD, [facility], [facility]
Total time spent: 55
--- NOTE | 2025-05-08 08:38 | W.PN.HOSP.TC ---
Today's Communication/Plan
-
IV Lasix. DAPT. Blood transfusion
Assessment / Plan
Assessment / Plan
Physical exam:
General: Acute on chronically ill
HEENT: Normocephalic, Atraumatic and Moist Mucous Membranes
Respiratory: Clear to Auscultation; Negative Wheezes, Rales or Rhonchi
Cardiac: Regular Rhythm and S1/S2, systolic murmur
GI: Soft, Nontender and Nondistended
Musculoskeletal: No Clubbing, No Cyanosis and No Edema
Neuro: Awake, Alert and Oriented, no neurological deficit
Psych: Calm
A/P:
NSTEMI:
Multivessel CAD by cath on 05/06 at [facility]
Stop Heparin drip today
Started on dual antiplatelet therapy, beta-blockers, nitrates, and statins
After several discussions, patient would like to pursue medical management for now. No CABG at all and PCI still on debate and wants to hold on CTA abdomen.
Discussed with cardiology in person today who would like to transfuse blood again to keep goal of hemoglobin at or above 10
Acute on chronic diastolic congestive heart failure:
IV Lasix 40 mg this morning
Hold oral Lasix for now
Monitor ins and outs and daily weights
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
Cardiology consulted hematology and input appreciated.
Status post blood transfusion yesterday 05/07
Will transfuse again another unit today at cardiology request-hemoglobin 8.8 today and goal closer to 10
Might require IV Lasix later today
Paroxysmal atrial fibrillation:
Rate control, on beta-maury
Antiarrhythmic, on amiodarone
Cardiac monitoring
Moderate to severe :
Serial echocardiograms
Hypertension:
Continue current antihypertensives
Hyperlipidemia:
Continue statin
Diabetes mellitus type 2:
Insulin sliding scale
Hypothyroidism:
Continue thyroid
Recent UTI:
Completed course of treatment
Repeated UA completely clear
Chronic kidney disease stage IIIb:
Avoid nephrotoxic
Monitor renal function
DVT prophylaxis:
SCDs
CODE STATUS:
Full code
Total time spent on today's encounter was 52 minutes which included time spent in counseling the patient/family regarding diagnosis and treatment plan as listed above, goals of care, and symptom management. Case was discussed with nursing staff,
specialists, and care coordinators/case management. All labs and imaging personally reviewed by me. Remainder the time spent in detailed review of previous records, lab data, imaging, and other medical provider documentation.
Anticipated Discharge: > 48 hours
Subjective/Interval History
-
Date of Service: May 08, 2025
Patient feels better overall. Less shortness of breath. No chest pain. Afebrile
Objective Data
-
Labs:
Laboratory Results
05/07/25 05/08/25 05/08/25
21:20 04:41 10:45
WBC 6.9
Hgb 8.8 L D
Hct 28.8 L
Plt Count 173
APTT 67.9 H 100.0 H Pending
Sodium 143
Potassium 3.8
Chloride 113 H
Carbon Dioxide 24
BUN 20 H
Creatinine 1.2 H
Glucose 155 H
Calcium 8.3 L
Vital Signs:
Vital Signs
Temp Pulse Resp BP Pulse Ox
98.2 F 77 20 154/51 94
05/08/25 07:08 05/08/25 08:15 05/08/25 07:08 05/08/25 07:07 05/08/25 07:08
I&O
05/07/25 05/08/25 05/09/25
06:59 06:59 06:59
Intake Total 0 / 0 525 / 525
Output Total 1750 / 1750
Balance 0 / 0 -1225 / -1225
--- NOTE | 2025-05-08 08:51 | W.PN.CARDCBS ---
Addendum entered and electronically signed by Hao Ardon MD 05/08/25 10:12:
I saw and examined the patient.
The Corporate Communications Specialist's note was reviewed and I agree with the note.
Comment:
GEN: No distress, awake, Ox3
HEENT: supple, anicteric, mmm
LUNGS: CTA, no wheezes/rales
CV: Reg, S1/S2, 3/6 syst LSB, no gallop
ABD: soft, BS+, NT/ND
EXT: No edema
NEURO: Gross non-focal
SKIN: No rash
PLan:
No new chest pains. After lengthy discussions with interventional cardiology plan is for medical therapy today. Will load with Plavix. Continue 75 mg daily continue aspirin.
Hemoglobin improved and up to 8.8. Lasix 40 mg IV now and daily. Would give further diuretics if she needs further blood
Continue aspirin, Toprol 50 mL p.o. every 12, Imdur 60 mg daily. Would hold RAN/ARB for now.
She prefers to hold off on the CTA of the abdomen/pelvis for now as she remains unclear whether she would want PCI.
We will follow her creatinine as she does have CKD 2-3. Creatinine overall stable at 1.2
Continue amiodarone to try to maintain sinus rhythm..
Original Note:
Today's Communication / Plan
-
Stop heparin
Loaded with Plavix 300 mg x 1 today and 75 mg daily
Give additional dose of IV Lasix today, would give additional 40 mg this afternoon if she gets transfusion
Consider giving additional unit of RBC to get Hgb 10 or higher
Continue aspirin, Toprol, Imdur, statin, losartan and Jardiance
Pt on the fence about PCI. Hold on CTA abd/pelvis for now
Impression / Plan
-
Primary Frame Carver Spindle: Previously Dr. Zhou, most recently Dr. Reyes
Assessment:
Presentation to [facility] 05/03/25 with CP, dyspnea
UTI
CAD
Remote [place] in 1982 without revascularization
Chronic angina
MV CAD by cath 05/06/25 at [facility]
Paroxysmal atrial fibrillation
Chronic amiodarone therapy
Not anticoagulation candidate given chronic anemia, frequent falls
MDS requiring periodic transfusions
Chronic heart failure with preserved EF
Moderate to severe
Hypothyroidism
Hypertension
Hyperlipidemia
DM2
CKD
Recurrent diverticulitis status post partial colon resection
Fall with left knee fracture status postrepair
Bilateral total hip replacements
Recent parainfluenza requiring admission to [facility] 03/2025
Myoview stress test 05/06/2025: Resting study only performed on patient. After injection, patient developed 8/10 chest pressure and dyspnea with EKG changes. Resting imaging showed evidence of dense apical defect at rest
Cardiac catheterization 05/06/2025: Disease involving distal left main, CANDY SEPARATOR HARD of LAD with good left to left and left to right collaterals, mid circumflex and OM 3, RCA with moderate to severe low-grade
Echocardiogram 05/04/2025: EF 55 to 60%, grade 2 diastolic dysfunction, abnormal apex, moderate , moderate thickening and calcification of posterior mitral valve leaflet with mild MS
Echo 05/07/2025 with [facility]: EF 40-45%, mod-severe LVH. Moderate MS w/ mean grad 5 mmhg. Moderate peak/mean 32/19 mmhg w/ YARELIS 1.2cm2.
Plan:
-Patient was admitted to [facility] 05/03/2025 due to chest pain and dyspnea in setting of recent parainfluenza and was noted to have acute on chronic anemia. Also had elevated troponin with initial concern for demand ischemia due to
worsening hemoglobin status post transfusion, however with elevated troponins underwent stress testing however only resting portion completed as with injection patient developed symptoms of chest pressure and dyspnea with associated EKG changes and
resting imaging showed dense apical defect. Underwent cardiac catheterization 05/06 which showed multivessel coronary disease as above as well as moderate to severe low gradient . Patient was transferred to [facility] 05/06/2025 for
evaluation of treatment options for coronary artery and valve disease.
- Currently chest pain-free. Consider having pt get up and walk around unit today to assess anginal symptoms.
- Hemoglobin 7.2, got 1 unit packed RBC (05/07), hgb improved to 8.8 (05/08). Given her degree of CAD ideally would like to see Hgb of at least 10 g/dl. She is followed as outpatient by Dr. Alvarado of [facility] heme/onc
-In light of her MDS and chronic anemia discussed risks and benefits of challenging patient with dual antiplatelet therapy for 2 weeks to make sure she would be able to maintain blood counts without additional bleeding issues. Heme/Onc cleared pt
for DAPT 05/07. Give Plavix load 300 mg x 1 (05/08) then 75 mg daily after. Pt agrees to this plan
-Stop Heparin gtt given we are loading with Plavix.
- ProBNP, 6380/7840 (05/07) with evidence of volume mild overload. On outpatient dosing of p.o. Lasix 40 mg twice daily. Got IV Lasix 05/07, give an additional 40 mg IV now and would repeat additional dose later today if she gets additional blood
transfusion.
- Cardiac catheterization results reviewed with patient and family by interventionalists. Multidisciplinary discussions regarding best treatment options and deemed poor candidate for bypass surgery and patient declines CABG.
-Patient remains on the fence if she went on would want to pursue PCI versus continuing medical therapy. Discussed she is high risk for PCI with possible need for Impella given coronary anatomy and moderate to severe . Consider obtaining CTA of
abdomen and pelvis to make sure iliofemoral arteries would allow for Impella placement safely, this will also help further guide decisions as well regarding pursing PCI. However will hold for now on CT angio/pelvis until patient has better
understanding if she would want to move forward with PCI.
- in SR on review of tele. continue amiodarone. she is not anticoagulated given falls and MDS with chronic anemia
- continue Toprol, Imdur, Jardiance, ASA
- Lipids 05/07/2025 TC 70, HDL 23, LDL 19, triglycerides 142. Lipids at goal. Continue lipitor
- d/w nursing, patient, nursing and Dr. Gibbs
History of Present Illness 05/08/2025:
Patient is an 89-year-old female with past medical history of MS in 1982 without revascularization, paroxysmal atrial fibrillation on chronic amiodarone, MDS requiring periodic transfusions, not anticoagulated due to MDS and frequent falls, chronic
heart failure with preserved EF, moderate to severe , recent parainfluenza, hypothyroidism, who is followed by [facility] cardiology. She then presented to [facility] on 05/03/2025 with chest discomfort and shortness of breath. Initially acute
on chronic symptomatic anemia was felt to be etiology of her symptoms and received transfusion. GI had also evaluated patient and she was not felt to have any active GI bleeding. As troponins were significantly elevated, she underwent stress
testing which was noted to be abnormal with patient complaining of chest discomfort and dyspnea during the test. She then underwent cardiac catheterization by Dr. Cronin on 05/06/2025 which revealed multivessel coronary artery disease including
significant distal left main stenosis, LAD CANDY SEPARATOR HARD with good left to left and left to right collaterals, significant mid circumflex/OM 3 disease, RCA disease and moderate to severe low gradient . Due to this patient was transferred to [facility] last
evening for evaluation of treatment options for MV CAD and . She denies current chest pain or shortness of breath. Currently receiving blood transfusion, hemoglobin 7.2 on 05/07.
Progress Note - Frame Carver Spindle
Subjective
Date of Service: May 08, 2025
Patient seen and examined. Patient sitting in chair. Denies chest pain. Did have mild nosebleed this morning which was easy to control.
Objective
Labs:
05/08/25 04:41
05/08/25 04:41
Labs
Hgb 8.8 g/dL (12.0-16.0) L D 05/08/25 04:41
Hct 28.8 % (37.0-47.0) L 05/08/25 04:41
Plt Count 173 10^3/uL (130-400) 05/08/25 04:41
APTT 100.0 Sec (23.4-35.0) H 05/08/25 04:41
Sodium 143 mmol/L (135-145) 05/08/25 04:41
Potassium 3.8 mmol/L (3.5-5.1) 05/08/25 04:41
BUN 20 mg/dl (7-17) H 05/08/25 04:41
Creatinine 1.2 mg/dL (0.6-1.0) H 05/08/25 04:41
Glucose 155 mg/dl (70-99) H 05/08/25 04:41
Troponins
05/07/25 05/07/25 05/07/25
01:46 08:21 13:30
Troponin I 0.380 H* 0.278 H* D Cancelled
Vital Signs and I&O:
Vital Signs
Temp Pulse Resp BP Pulse Ox
98.2 F 77 20 154/51 94
05/08/25 07:08 05/08/25 08:15 05/08/25 07:08 05/08/25 07:07 05/08/25 07:08
Vital Signs
Temp Pulse Resp BP Pulse Ox
98.2 F 77 20 154/51 94
05/08/25 07:08 05/08/25 08:15 05/08/25 07:08 05/08/25 07:07 05/08/25 07:08
Intake & Output
05/06/25 05/07/25 05/08/25 05/09/25
06:59 06:59 06:59 06:59
Intake Total 0 / 0 525 / 525
Output Total 1750 / 1750
Balance 0 / 0 -1225 / -1225
Physical Exam
Physical Exam
GEN: No distress, awake, Ox3, sitting in chair
HEENT: supple, anicteric, mmm
LUNGS: crackles at bilateral bases otherwise CTA
CV: Reg, S1/S2, 2/6 syst murmur
ABD: soft, BS+, NT/ND
EXT:Trace edema bilaterally
NEURO: Gross non-focal
SKIN: No rash,
[2025-05-08 09:59] LABS: Glucose - Point of Care 148 mg/dl (70-99)
--- NOTE | 2025-05-08 10:56 | CM ---
Reviewed chart. Met with Mrs. Lomeli to review discharge plans. She states she is feeling better. She states she has been ambulating into the bathroom with a walker. She is current with [facility] She is agreeable to resumption of care
with [facility]. Telephone call to [facility] to make the referral. Sent the referral. Prior to admission she resides with her spouse and son in a one story home with three steps to enter. Prior to admission she
ambulates with a single point cane and independent with adls. She has a single point cane, walker and wheelchair at home. She is current with [facility]. She has a prescription plan with . Will need to see her current
functional level to see if she will need any skilled care needs. Medical work-up in progress. The discharge plan is to return home with her spouse and son with resumption of [facility] when medically stable. .
[2025-05-08] MEDS: PLAVIX 300 MG PO (11:22)
[2025-05-08] MEDS: LIPITOR 40 MG PO (11:23)
[2025-05-08] MEDS: PROTONIX 40 MG PO (11:23)
[2025-05-08] MEDS: IMDUR (EXTENDED RELEASE) 60 MG PO (11:23)
[2025-05-08] MEDS: LOW STRENGTH ASPIRIN 81 MG PO (11:23)
[2025-05-08] MEDS: PACERONE 200 MG PO (11:23)
[2025-05-08] MEDS: TIMOPTIC 0.5% OPHTHALMIC SOLUTION 1 DROP BOTH EYES (11:25)
[2025-05-08] MEDS: NOVOLOG FLEXPEN-LOW RESISTANCE SC (11:26)
[2025-05-08 12:39] LABS: Glucose - Point of Care 173 mg/dl (70-99)
[2025-05-08] MEDS: NOVOLOG FLEXPEN-LOW RESISTANCE 1 UNITS SC ×2 (13:29→17:58)
--- NOTE | 2025-05-08 14:14 | PTCARENOTE ---
pt sb on the monitor, hr in the 50s, vss. pt offers no complaints at this time. pt OOB to chair with meals and tolerating well. pt receiving rbc's currently per order, see TAR. heparin gtt stopped per order. pt educated on plan of care and pt
verbalized understanding. call quesada within reach. bed alarm on.
[2025-05-08] MEDS: LASIX 40 MG IV (17:13)
[2025-05-08 17:59] LABS: Glucose - Point of Care 175 mg/dl (70-99)
[2025-05-08] MEDS: XALATAN OPHTHALMIC SOLUTION 1 DROP BOTH EYES (20:23)
[2025-05-08 22:25] LABS: Glucose - Point of Care 236 mg/dl (70-99)
[2025-05-09] VITALS (13 sets, daily range): BP systolic 147–176; BP diastolic 45–103; BMI 28.0
[2025-05-09 03:51] LABS: Hematocrit 29.6 % (37.0-47.0); Hemoglobin 9.2 g/dL (12.0-16.0); Mean Corp Hgb Conc. 31.1 g/dL (33.0-37.0); Mean Corpuscular Volume 98.0 fL (81.0-99.0); Platelet Count 162 10^3/uL (130-400); Red Cell Dist. Width 22.1 % (11.5-14.5)
[2025-05-09 04:01] LABS: Blood Urea Nitrogen 24 mg/dl (7-17); Calcium 8.4 mg/dl (8.4-10.2); Carbon Dioxide 22 mmol/L (22-30); Chloride 113 mmol/L (98-107); Estimated Creatinine Clearance 30 ml/min; Glucose 172 mg/dl (70-99); Magnesium 2.1 mg/dl (1.6-2.3); Potassium 3.9 mmol/L (3.5-5.1); Sodium 141 mmol/L (135-145); eGFR 43.54
[2025-05-09] MEDS: SYNTHROID 50 MCG PO (06:13)
[2025-05-09 07:01] LABS: Glucose - Point of Care 181 mg/dl (70-99)
[2025-05-09] MEDS: IMDUR (EXTENDED RELEASE) 60 MG PO (07:48)
[2025-05-09] MEDS: PLAVIX 75 MG PO (07:48)
[2025-05-09] MEDS: PROTONIX 40 MG PO (07:48)
[2025-05-09] MEDS: PACERONE 200 MG PO (07:49)
[2025-05-09] MEDS: LOW STRENGTH ASPIRIN 81 MG PO (07:49)
[2025-05-09] MEDS: LIPITOR 40 MG PO (07:49)
[2025-05-09] MEDS: TOPROL XL 50 MG PO ×2 (07:50→19:45)
[2025-05-09] MEDS: NOVOLOG FLEXPEN-LOW RESISTANCE 1 UNITS SC ×2 (07:51→17:25)
[2025-05-09] MEDS: TIMOPTIC 0.5% OPHTHALMIC SOLUTION 1 DROP BOTH EYES (07:56)
--- NOTE | 2025-05-09 07:58 | W.PN.HOSP.TC ---
Today's Communication/Plan
-
IV Lasix. Blood transfusion.
Assessment / Plan
Assessment / Plan
Physical exam:
General: Acute on chronically ill
HEENT: Normocephalic, Atraumatic and Moist Mucous Membranes
Respiratory: Clear to Auscultation; Negative Wheezes, Rales or Rhonchi
Cardiac: Regular Rhythm and S1/S2, systolic murmur
GI: Soft, Nontender and Nondistended
Musculoskeletal: No Clubbing, No Cyanosis and No Edema
Neuro: Awake, Alert and Oriented, no neurological deficit
Psych: Calm
A/P:
NSTEMI:
Multivessel CAD by cath on 05/06 at [facility]
Off heparin drip
Continue on dual antiplatelet therapy, beta-blockers, nitrates, and statins
After several discussions, patient would like to pursue medical management for now. No CABG at all and PCI still on debate and wants to hold on CTA abdomen.
Discussed with cardiology yesterday who would like to transfuse blood again to keep goal of hemoglobin at or above 10
Updated daughter over the phone, Sharon Mustafa per patient request
Acute on chronic diastolic congestive heart failure:
IV Lasix 40 mg this morning
Hold oral Lasix for now
Monitor ins and outs and daily weights
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
Cardiology consulted hematology and input appreciated.
Status post blood transfusions
Will transfuse again another unit today 05/09 based on initial cardiology request-hemoglobin 9.2 today and goal closer to 10
Will order IV Lasix after transfusion today
Paroxysmal atrial fibrillation:
Rate control, on beta-maury
Antiarrhythmic, on amiodarone
Cardiac monitoring
Moderate to severe :
Serial echocardiograms
Hypertension:
A bit in the higher side today-monitor
If continues to be elevated after the Lasix, might need further adjustments of her antihypertensive regimen. Follow-up cardiology recommendations as well.
Continue current antihypertensives
Hyperlipidemia:
Continue statin
Diabetes mellitus type 2:
Insulin sliding scale
Hypothyroidism:
Continue thyroid
Recent UTI:
Completed course of treatment
Repeated UA completely clear
Chronic kidney disease stage IIIb:
Avoid nephrotoxic
Monitor renal function
DVT prophylaxis:
SCDs
CODE STATUS:
Full code
Total time spent on today's encounter was 52 minutes which included time spent in counseling the patient/family regarding diagnosis and treatment plan as listed above, goals of care, and symptom management. Case was discussed with nursing staff,
specialists, and care coordinators/case management. All labs and imaging personally reviewed by me. Remainder the time spent in detailed review of previous records, lab data, imaging, and other medical provider documentation.
Anticipated Discharge: 24 - 48 hours
Subjective/Interval History
-
Date of Service: May 09, 2025
Patient denies any chest pain. She does continue to have dyspnea. Afebrile
Objective Data
-
Labs:
Laboratory Results
05/09/25
03:11
WBC 5.6
Hgb 9.2 L
Hct 29.6 L
Plt Count 162
Sodium 141
Potassium 3.9
Chloride 113 H
Carbon Dioxide 22
BUN 24 H
Creatinine 1.2 H
Glucose 172 H
Calcium 8.4
Vital Signs:
Vital Signs
Temp Pulse Resp BP Pulse Ox
97.6 F 56 14 176/59 99
05/09/25 07:06 05/09/25 07:30 05/09/25 07:06 05/09/25 07:09 05/09/25 07:06
I&O
05/08/25 05/09/25 05/10/25
06:59 06:59 06:59
Intake Total 525 / 525 1210 / 1210
Output Total 1750 / 1750 400 / 400
Balance -1225 / -1225 810 / 810
[2025-05-09 11:32] LABS: Glucose - Point of Care 220 mg/dl (70-99)
[2025-05-09] MEDS: NOVOLOG FLEXPEN-LOW RESISTANCE 2 UNITS SC (11:35)
--- NOTE | 2025-05-09 15:07 | PTCARENOTE ---
1 unit PRBC's transfused. Pt emely well, VSS.
[2025-05-09] MEDS: LASIX 40 MG IV (16:34)
[2025-05-09 16:58] LABS: Glucose - Point of Care 175 mg/dl (70-99)
--- NOTE | 2025-05-09 19:00 | W.PN.CARDCBS ---
Today's Communication / Plan
-
Switch to IV furosemide 40 mg twice daily
Restart losartan 50 mg a day
Restart Jardiance 10 mg a day
Hopefully for discharge in 24 to 48 hours
Impression / Plan
-
Primary Real Estate Utilization Officer: Previously Dr. Zhou, most recently Dr. Reyes
Assessment:
Presentation to [facility] 05/03/25 with CP, dyspnea
UTI
CAD
Remote [place] in 1982 without revascularization
Chronic angina
MV CAD by cath 05/06/25 at [facility]
Paroxysmal atrial fibrillation
Chronic amiodarone therapy
Not anticoagulation candidate given chronic anemia, frequent falls
MDS requiring periodic transfusions
Chronic heart failure with preserved EF
Moderate to severe
Hypothyroidism
Hypertension
Hyperlipidemia
DM2
CKD
Recurrent diverticulitis status post partial colon resection
Fall with left knee fracture status postrepair
Bilateral total hip replacements
Recent parainfluenza requiring admission to [facility] 03/2025
Myoview stress test 05/06/2025: Resting study only performed on patient. After injection, patient developed 8/10 chest pressure and dyspnea with EKG changes. Resting imaging showed evidence of dense apical defect at rest
Cardiac catheterization 05/06/2025: Disease involving distal left main, PLATER HOT DIP of LAD with good left to left and left to right collaterals, mid circumflex and OM 3, RCA with moderate to severe low-grade
Echocardiogram 05/04/2025: EF 55 to 60%, grade 2 diastolic dysfunction, abnormal apex, moderate , moderate thickening and calcification of posterior mitral valve leaflet with mild MS
Echo 05/07/2025 with [facility]: EF 40-45%, mod-severe LVH. Moderate MS w/ mean grad 5 mmhg. Moderate peak/mean 32/19 mmhg w/ YARELIS 1.2cm2.
Plan:
She looks reasonably well, but is hypertensive and still somewhat volume overloaded.
She received blood today. Currently is on DAPT.
proBNP has been significantly elevated. She received IV Lasix x 1 with blood. Will switch to IV Lasix 40 mg twice daily starting tomorrow.
She is hypertensive, and had been on losartan. We will restart this.
Also, she had been on Jardiance. We will restart this as well.
Tentatively for discharge in 24 to 48 hours.
History of Present Illness 05/08/2025:
Patient is an 89-year-old female with past medical history of [place] in 1982 without revascularization, paroxysmal atrial fibrillation on chronic amiodarone, MDS requiring periodic transfusions, not anticoagulated due to MDS and frequent falls, chronic
heart failure with preserved EF, moderate to severe , recent parainfluenza, hypothyroidism, who is followed by [facility] cardiology. She then presented to [facility] on 05/03/2025 with chest discomfort and shortness of breath. Initially acute
on chronic symptomatic anemia was felt to be etiology of her symptoms and received transfusion. GI had also evaluated patient and she was not felt to have any active GI bleeding. As troponins were significantly elevated, she underwent stress
testing which was noted to be abnormal with patient complaining of chest discomfort and dyspnea during the test. She then underwent cardiac catheterization by Dr. Cronin on 05/06/2025 which revealed multivessel coronary artery disease including
significant distal left main stenosis, LAD PLATER HOT DIP with good left to left and left to right collaterals, significant mid circumflex/OM 3 disease, RCA disease and moderate to severe low gradient . Due to this patient was transferred to [facility] last
evening for evaluation of treatment options for MV CAD and . She denies current chest pain or shortness of breath. Currently receiving blood transfusion, hemoglobin 7.2 on 05/07.
Progress Note - Real Estate Utilization Officer
Subjective
Date of Service: May 09, 2025:
89-year-old woman transferred from [facility] for further evaluation in the setting of moderate to severe aortic stenosis and multivessel CAD including left main disease. Hemoglobin 7.2 on transfer. Cardiac catheterization performed at [facility] with multivessel CAD, significant distal left main, PLATER HOT DIP of LAD with good collateral flow along with circumflex/OM and RCA disease.
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
hypothyroidism, glaucoma. After evaluation, decision is for medical management.
Current medications: Aspirin 81 mg a day, amiodarone 200 mg daily, atorvastatin 40 mg daily, furosemide 40 mg by mouth twice daily, isosorbide mononitrate 60 mg a day, levothyroxine 50 mcg a day, pantoprazole, timolol eyedrops, clopidogrel 75 mg a
day and metoprolol ER 50 mg twice daily
Patient anxious to return home, she has lots of support, received blood and furosemide earlier today for hemoglobin of 9.2.
165/55, pulse 59 weight is 69.4 kg, head neck exam unremarkable lungs are relatively clear, she seems somewhat tachypneic neck veins are up somewhat, aortic stenosis murmur abdomen benign 1+ edema, she appears comfortable otherwise
Hemoglobin 9.2, platelets 162, BUN/creatinine are 24 and 1.2, proBNP was 7840 on the
Echo 05/07/2025: EF 40-45%, moderate to severe LVH, akinesis of apical septum and apex, anteroapical segment is hypokinetic, RV normal, severely dilated left atrium, mildly dilated right atrium, aortic valve area 01 cm 2, peak/mean gradient 32/19
mmHg, mild MR, could not determine pulmonary artery pressure
Objective
Labs:
05/09/25 03:11
05/09/25 03:11
Labs
Hgb 9.2 g/dL (12.0-16.0) L 05/09/25 03:11
Hct 29.6 % (37.0-47.0) L 05/09/25 03:11
Plt Count 162 10^3/uL (130-400) 05/09/25 03:11
APTT Cancelled 05/08/25 10:45
Sodium 141 mmol/L (135-145) 05/09/25 03:11
Potassium 3.9 mmol/L (3.5-5.1) 05/09/25 03:11
BUN 24 mg/dl (7-17) H 05/09/25 03:11
Creatinine 1.2 mg/dL (0.6-1.0) H 05/09/25 03:11
Glucose 172 mg/dl (70-99) H 05/09/25 03:11
Troponins
05/07/25 05/07/25 05/07/25
01:46 08:21 13:30
Troponin I 0.380 H* 0.278 H* D Cancelled
Vital Signs and I&O:
Vital Signs
Temp Pulse Resp BP Pulse Ox
36.9 C 59 14 165/55 98
05/09/25 15:43 05/09/25 18:45 05/09/25 15:43 05/09/25 15:46 05/09/25 15:43
Vital Signs
Temp Pulse Resp BP Pulse Ox
36.9 C 59 14 165/55 98
05/09/25 15:43 05/09/25 18:45 05/09/25 15:43 05/09/25 15:46 05/09/25 15:43
Intake & Output
05/07/25 05/08/25 05/09/25 05/10/25
07:59 07:59 07:59 07:59
Intake Total 0 / 0 1005 / 1005 730 / 730 0 / 0
Output Total 1750 / 1750 400 / 400 200 / 200
Balance 0 / 0 -745 / -745 330 / 330 -200 / -200
Physical Exam
Physical Exam
See above
[2025-05-09] MEDS: XALATAN OPHTHALMIC SOLUTION 1 DROP BOTH EYES (19:58)
[2025-05-09] MEDS: TYLENOL 650 MG PO (19:59)
--- NOTE | 2025-05-09 21:39 | PTCARENOTE ---
Pt rec'd at change of shift oob in recliner chair. Assisted to bathroom to void. back in bed at [facility]. Pt with c/o pain in left ribs medicated with Tylenol. Sinus on telemetry with occ pac's and + murmur
[2025-05-09] MEDS: COZAAR 50 MG PO (22:30)
[2025-05-09 22:49] LABS: Glucose - Point of Care 206 mg/dl (70-99)
[2025-05-10 03:17] VITALS: BMI 28.0
[2025-05-10 03:22] VITALS: BP 176/60
[2025-05-10 03:47] LABS: Hematocrit 34.2 % (37.0-47.0); Hemoglobin 10.7 g/dL (12.0-16.0); Mean Corp Hgb Conc. 31.3 g/dL (33.0-37.0); Mean Corpuscular Volume 95.5 fL (81.0-99.0); Platelet Count 155 10^3/uL (130-400); Red Cell Dist. Width 21.4 % (11.5-14.5)
[2025-05-10 04:10] LABS: Blood Urea Nitrogen 23 mg/dl (7-17); Calcium 8.3 mg/dl (8.4-10.2); Carbon Dioxide 24 mmol/L (22-30); Chloride 111 mmol/L (98-107); Estimated Creatinine Clearance 27 ml/min; Glucose 189 mg/dl (70-99); Magnesium 2.0 mg/dl (1.6-2.3); Potassium 3.9 mmol/L (3.5-5.1); Sodium 140 mmol/L (135-145); eGFR 39.55
[2025-05-10 06:55] VITALS: BP 176/53
[2025-05-10 08:03] LABS: Glucose - Point of Care 214 mg/dl (70-99)
[2025-05-10] MEDS: PACERONE 200 MG PO (08:03)
[2025-05-10] MEDS: FARXIGA 10 MG PO (08:03)
[2025-05-10] MEDS: PLAVIX 75 MG PO (08:04)
[2025-05-10] MEDS: SYNTHROID 50 MCG PO (08:04)
[2025-05-10] MEDS: PROTONIX 40 MG PO (08:04)
[2025-05-10] MEDS: LOW STRENGTH ASPIRIN 81 MG PO (08:04)
[2025-05-10] MEDS: TOPROL XL 50 MG PO ×2 (08:05→19:13)
[2025-05-10] MEDS: LIPITOR 40 MG PO (08:05)
[2025-05-10] MEDS: IMDUR (EXTENDED RELEASE) 60 MG PO (08:08)
[2025-05-10] MEDS: TIMOPTIC 0.5% OPHTHALMIC SOLUTION 1 DROP BOTH EYES (08:09)
[2025-05-10] MEDS: NOVOLOG FLEXPEN-LOW RESISTANCE 2 UNITS SC ×2 (08:09→13:03)
--- NOTE | 2025-05-10 08:51 | W.PN.HOSP.TC ---
Today's Communication/Plan
-
IV Lasix
Assessment / Plan
Assessment / Plan
Physical exam:
General: Acute on chronically ill
HEENT: Normocephalic, Atraumatic and Moist Mucous Membranes
Respiratory: Clear to Auscultation; Negative Wheezes, Rales or Rhonchi
Cardiac: Regular Rhythm and S1/S2, systolic murmur
GI: Soft, Nontender and Nondistended
Musculoskeletal: No Clubbing, No Cyanosis and No Edema
Neuro: Awake, Alert and Oriented, no neurological deficit
Psych: Calm
A/P:
NSTEMI:
Multivessel CAD by cath on 05/06 at [facility]
Off heparin drip
Continue on dual antiplatelet therapy, beta-blockers, nitrates, and statins
After several discussions, patient would like to pursue medical management for now. No CABG at all and PCI still on debate and wants to hold on CTA abdomen.
Discussed with cardiology prior who would like to transfuse blood to keep goal of hemoglobin at or above 10 and patient currently at goal.
Updated daughter over the phone, Sharon Mustafa per patient request yesterday
Discussed with RN at bedside
Acute on chronic diastolic congestive heart failure:
On IV Lasix 40 mg twice a day by cardiology guidance
Monitor ins and outs and daily weights
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
Cardiology consulted hematology and input appreciated.
Status post blood transfusions
We achieved goal of hemoglobin over 10 as per cardiology recommendations. Hemoglobin today 10.7
Will order IV Lasix after transfusion today
Paroxysmal atrial fibrillation:
Rate control, on beta-maury
Antiarrhythmic, on amiodarone
Cardiac monitoring
Moderate to severe :
Serial echocardiograms
Hypertension:
A bit in the higher side today-I see cardiology had made some changes so we will reevaluate
Continue current antihypertensives--> she is currently on IV furosemide and oral Imdur 60 mg daily, metoprolol succinate 50 mg twice a day, and recently added losartan 50 mg p.o. nightly.
Will add IV hydralazine as needed
Hyperlipidemia:
Continue statin
Diabetes mellitus type 2:
Blood sugars elevated but she has not been on long-acting insulin (she takes Tresiba 20 units every night at home)
Start Lantus 20 units daily
Insulin sliding scale
Hypothyroidism:
Continue thyroid replacement
Recent UTI:
Completed course of treatment
Repeated UA completely clear
Chronic kidney disease stage IIIb:
Avoid nephrotoxic
Monitor renal function
DVT prophylaxis:
SCDs
CODE STATUS:
Full code
Total time spent on today's encounter was 52 minutes which included time spent in counseling the patient/family regarding diagnosis and treatment plan as listed above, goals of care, and symptom management. Case was discussed with nursing staff,
specialists, and care coordinators/case management. All labs and imaging personally reviewed by me. Remainder the time spent in detailed review of previous records, lab data, imaging, and other medical provider documentation.
Anticipated Discharge: 24 - 48 hours
Subjective/Interval History
-
Date of Service: May 10, 2025
Patient still short of breath although much less overall. No chest pain. Blood pressure bit elevated. Complains of katie-colored urine but no dysuria urgency or frequency. Afebrile
Objective Data
-
Labs:
Laboratory Results
05/10/25
03:28
WBC 4.7 L
Hgb 10.7 L
Hct 34.2 L
Plt Count 155
Sodium 140
Potassium 3.9
Chloride 111 H
Carbon Dioxide 24
BUN 23 H
Creatinine 1.3 H
Glucose 189 H
Calcium 8.3 L
Vital Signs:
Vital Signs
Temp Pulse Resp BP Pulse Ox
97.6 F 64 20 176/53 94
05/10/25 06:55 08/31/25 08:00 05/10/25 06:55 05/10/25 06:55 05/10/25 06:55
I&O
05/09/25 05/10/25 05/11/25
06:59 06:59 06:59
Intake Total 1210 / 1210 100 / 100
Output Total 400 / 400 650 / 650
Balance 810 / 810 -550 / -550
[2025-05-10] MEDS: LASIX 40 MG IV ×2 (09:46→16:41)
[2025-05-10] MEDS: LANTUS 0.2 UNITS SC (10:24)
[2025-05-10 12:03] VITALS: BP 168/50
[2025-05-10 12:21] LABS: Glucose - Point of Care 212 mg/dl (70-99)
--- NOTE | 2025-05-10 14:34 | W.PN.CARDCBS ---
Today's Communication / Plan
-
Continue IV furosemide
Double losartan to 50 twice daily
If needed, consider spironolactone
Impression / Plan
-
Primary Nurse Intern: Previously Dr. Zhou, most recently Dr. Reyes
Assessment:
Presentation to [facility] 05/03/25 with CP, dyspnea
UTI
CAD
Remote [place] in 1982 without revascularization
Chronic angina
MV CAD by cath 05/06/25 at [facility]
Paroxysmal atrial fibrillation
Chronic amiodarone therapy
Not anticoagulation candidate given chronic anemia, frequent falls
MDS requiring periodic transfusions
Chronic heart failure with preserved EF
Moderate to severe
Hypothyroidism
Hypertension
Hyperlipidemia
DM2
CKD
Recurrent diverticulitis status post partial colon resection
Fall with left knee fracture status postrepair
Bilateral total hip replacements
Recent parainfluenza requiring admission to [facility] 03/2025
Myoview stress test 05/06/2025: Resting study only performed on patient. After injection, patient developed 8/10 chest pressure and dyspnea with EKG changes. Resting imaging showed evidence of dense apical defect at rest
Cardiac catheterization 05/06/2025: Disease involving distal left main, CORPORATE SECURITY MANAGER of LAD with good left to left and left to right collaterals, mid circumflex and OM 3, RCA with moderate to severe low-grade
Echocardiogram 05/04/2025: EF 55 to 60%, grade 2 diastolic dysfunction, abnormal apex, moderate , moderate thickening and calcification of posterior mitral valve leaflet with mild MS
Echo 05/07/2025 with [facility]: EF 40-45%, mod-severe LVH. Moderate MS w/ mean grad 5 mmhg. Moderate peak/mean 32/19 mmhg w/ YARELIS 1.2cm2. No aortic regurgitation.
Plan:
She feels better. She denies chest pain or dyspnea.
Her volume status is improved compared to yesterday, but her weight is unchanged. Yesterday we had switched from p.o. to IV furosemide. Will continue IV furosemide through today and probably switch back to furosemide 40 mg p.o. twice daily
tomorrow. Jardiance has been restarted. It had been stopped by her agricultural produce sorter, and I encouraged her to continue if possible.
She is still hypertensive. Losartan was restarted yesterday. Increase losartan to 50 mg twice daily.
Hemoglobin is 10.7 and she seems to be tolerating DAPT.
If still hypertensive, with relatively low potassium low-dose spironolactone might be a good option.
Will reassess in a.m., hopefully for discharge.
History of Present Illness 05/08/2025:
Patient is an 89-year-old female with past medical history of [place] in 1982 without revascularization, paroxysmal atrial fibrillation on chronic amiodarone, MDS requiring periodic transfusions, not anticoagulated due to MDS and frequent falls, chronic
heart failure with preserved EF, moderate to severe , recent parainfluenza, hypothyroidism, who is followed by [facility] cardiology. She then presented to [facility] on 05/03/2025 with chest discomfort and shortness of breath. Initially acute
on chronic symptomatic anemia was felt to be etiology of her symptoms and received transfusion. GI had also evaluated patient and she was not felt to have any active GI bleeding. As troponins were significantly elevated, she underwent stress
testing which was noted to be abnormal with patient complaining of chest discomfort and dyspnea during the test. She then underwent cardiac catheterization by Dr. Cronin on 05/06/2025 which revealed multivessel coronary artery disease including
significant distal left main stenosis, LAD CORPORATE SECURITY MANAGER with good left to left and left to right collaterals, significant mid circumflex/OM 3 disease, RCA disease and moderate to severe low gradient . Due to this patient was transferred to [facility] last
evening for evaluation of treatment options for MV CAD and . She denies current chest pain or shortness of breath. Currently receiving blood transfusion, hemoglobin 7.2 on 05/07.
Progress Note - Nurse Intern
Subjective
Date of Service: May 10, 2025:
She feels well. Family at bedside.
Current medications: Aspirin 81 mg a day, amiodarone 200 mg daily, atorvastatin 40 mg a day, isosorbide mononitrate 60 mg a day, Xalatan, levothyroxine 50 mcg daily, pantoprazole 40 mg a day, timolol, clopidogrel 75 mg a day, metoprolol ER 50 mg
twice daily, dapagliflozin 10 mg a day, furosemide 40 mg IV twice daily, losartan 50 mg at bedtime Lantus insulin
176/53, pulse 56, respiratory rate 20, afebrile, sats are 99%, weight is 69.3 kg, unchanged from yesterday , No distress sitting in bed, family at bedside, head neck exam unremarkable, lungs are relatively clear, JVD is improved compared to
yesterday, aortic stenosis murmur, regular rate and rhythm, abdomen benign, extremities with trace edema.
Hemoglobin is 10.7 and, white count is 4.7, platelets are 155, BUN and creatinine are 23 and 1.3, stable, mag is 2, potassium is 3.9
Objective
Labs:
05/10/25 03:28
05/10/25 03:28
Labs
Hgb 10.7 g/dL (12.0-16.0) L 05/10/25 03:28
Hct 34.2 % (37.0-47.0) L 05/10/25 03:28
Plt Count 155 10^3/uL (130-400) 05/10/25 03:28
APTT Cancelled 05/08/25 10:45
Sodium 140 mmol/L (135-145) 05/10/25 03:28
Potassium 3.9 mmol/L (3.5-5.1) 05/10/25 03:28
BUN 23 mg/dl (7-17) H 05/10/25 03:28
Creatinine 1.3 mg/dL (0.6-1.0) H 05/10/25 03:28
Glucose 189 mg/dl (70-99) H 05/10/25 03:28
Vital Signs and I&O:
Vital Signs
Temp Pulse Resp BP Pulse Ox
36.6 C 56 20 176/53 99
05/10/25 12:02 05/10/25 11:02 05/10/25 12:02 05/10/25 06:55 05/10/25 12:02
Vital Signs
Temp Pulse Resp BP Pulse Ox
36.6 C 56 20 176/53 99
05/10/25 12:02 05/10/25 11:02 05/10/25 12:02 05/10/25 06:55 05/10/25 12:02
Intake & Output
05/08/25 05/09/25 05/10/25 05/11/25
07:59 07:59 07:59 07:59
Intake Total 1005 / 1005 730 / 730 100 / 100
Output Total 1750 / 1750 400 / 400 650 / 650
Balance -745 / -745 330 / 330 -550 / -550
Physical Exam
Physical Exam
See above
[2025-05-10 14:59] VITALS: BP 146/83
[2025-05-10] MEDS: IMODIUM 2 MG PO ×2 (16:27→21:23)
[2025-05-10 17:33] LABS: Glucose - Point of Care 187 mg/dl (70-99)
[2025-05-10] MEDS: NOVOLOG FLEXPEN-LOW RESISTANCE 1 UNITS SC (17:36)
--- NOTE | 2025-05-10 18:04 | PTCARENOTE ---
Pt had 2 episodes of loose stools, Dr Gibbs aware, immodium ordered, as Pt requestred. She takes this at home for IBS.
[2025-05-10 19:08] VITALS: BP 163/49
[2025-05-10 21:58] VITALS: BP 163/57
[2025-05-10 22:02] LABS: Glucose - Point of Care 198 mg/dl (70-99)
[2025-05-10] MEDS: COZAAR 50 MG PO (22:49)
[2025-05-10] MEDS: XALATAN OPHTHALMIC SOLUTION 1 DROP BOTH EYES (22:49)
[2025-05-11] VITALS (7 sets, daily range): BP systolic 132–174; BP diastolic 42–54; PULSE 65; BMI 27.2
--- NOTE | 2025-05-11 01:54 | PTCARENOTE ---
Pt rec'd oob in recliner chair with c/o gas and some minimal loose stool. Pt reports she has this at home and takes Imodium daily. Sinus on telemetry.
[2025-05-11] MEDS: APRESOLINE 10 MG IV (03:40)
[2025-05-11] MEDS: SYNTHROID 50 MCG PO (03:41)
--- NOTE | 2025-05-11 03:50 | PTCARENOTE ---
Pt reports stomach settled. No further c/o gas pains or stool. B/p 174 systolic, prn Hydralazine dose given IV.
[2025-05-11 03:55] LABS: Hematocrit 36.9 % (37.0-47.0); Hemoglobin 11.8 g/dL (12.0-16.0); Mean Corp Hgb Conc. 32.0 g/dL (33.0-37.0); Mean Corpuscular Volume 95.1 fL (81.0-99.0); Platelet Count 149 10^3/uL (130-400); Red Cell Dist. Width 21.6 % (11.5-14.5)
[2025-05-11 04:16] LABS: Blood Urea Nitrogen 24 mg/dl (7-17); Calcium 8.5 mg/dl (8.4-10.2); Carbon Dioxide 24 mmol/L (22-30); Chloride 109 mmol/L (98-107); Estimated Creatinine Clearance 27 ml/min; Glucose 154 mg/dl (70-99); Potassium 3.5 mmol/L (3.5-5.1); Sodium 141 mmol/L (135-145); eGFR 39.55
[2025-05-11 08:09] LABS: Glucose - Point of Care 147 mg/dl (70-99)
[2025-05-11] MEDS: NOVOLOG FLEXPEN-LOW RESISTANCE SC (08:36)
[2025-05-11] MEDS: PACERONE 200 MG PO (08:43)
[2025-05-11] MEDS: LIPITOR 40 MG PO (08:43)
[2025-05-11] MEDS: FARXIGA 10 MG PO (08:43)
[2025-05-11] MEDS: LANTUS 0.2 UNITS SC (08:43)
[2025-05-11] MEDS: IMDUR (EXTENDED RELEASE) 60 MG PO (08:43)
[2025-05-11] MEDS: TOPROL XL 50 MG PO (08:44)
[2025-05-11] MEDS: TIMOPTIC 0.5% OPHTHALMIC SOLUTION 1 DROP BOTH EYES (08:44)
[2025-05-11] MEDS: PLAVIX 75 MG PO (08:44)
[2025-05-11] MEDS: LOW STRENGTH ASPIRIN 81 MG PO (08:44)
[2025-05-11] MEDS: LASIX 40 MG IV (08:44)
[2025-05-11] MEDS: PROTONIX 40 MG PO (08:44)
--- NOTE | 2025-05-11 09:28 | W.PN.HOSP.TC ---
Addendum entered and electronically signed by Aniya Perez MD 05/11/25 15:32:
Addendum
Patient's blood pressure improved. She still wants to go home.
Discussed with account installer and finalized discharge medications. Given prescription to do blood work in 1 week and follow-up with her doctors in outpatient setting. Patient has been independent in her room and walked with her nurse in the hallway
without shortness of breath or chest pain.
Total discharge time spent to see the patient, examine the patient, review data and lab results, discuss discharge plan with patient, account installer, nursing staff around 65 minutes�
Original Note:
Today's Communication/Plan
-
discharge if ok with cardiology
Assessment / Plan
Assessment / Plan
Physical exam:
General:Not in distress, chronically ill
HEENT: Normocephalic, Atraumatic and Moist Mucous Membranes
Respiratory: Negative Wheezes, Rales or Rhonchi
Cardiac: Regular Rhythm and S1/S2, systolic murmur
GI: Soft, Nontender and Nondistended
Musculoskeletal: No Clubbing, No Cyanosis and No Edema
Neuro: Awake, Alert and Oriented, no neurological deficit
Psych: Calm
A/P:
NSTEMI:
Multivessel CAD by cath on 05/06 at [facility]
Off heparin drip
Continue on dual antiplatelet therapy, beta-blockers, nitrates, and statins
After several discussions, patient would like to pursue medical management for now. No CABG at all and PCI still on debate and wants to hold on CTA abdomen.
Discussed with cardiology prior who would like to transfuse blood to keep goal of hemoglobin at or above 10 and patient currently at goal.
Updated daughter over the phone, Sharon Mustafa per patient request yesterday
Discussed with RN at bedside
Acute on chronic diastolic congestive heart failure:
On IV Lasix 40 mg twice a day by cardiology guidance
Monitor ins and outs and daily weights
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
Cardiology consulted hematology and input appreciated.
Status post blood transfusions
We achieved goal of hemoglobin over 10 as per cardiology recommendations. Hemoglobin stable.
Paroxysmal atrial fibrillation:
Rate control, on beta-maury
Antiarrhythmic, on amiodarone
Cardiac monitoring
Moderate to severe :
Serial echocardiograms
Hypertension:
uncontrolled
d/w account installer, increased losartan to BID
Hyperlipidemia:
Continue statin
Diabetes mellitus type 2:
Blood sugars elevated but she has not been on long-acting insulin (she takes Tresiba 20 units every night at home)
Start Lantus 20 units daily
Insulin sliding scale
Hypothyroidism:
Continue thyroid replacement
Recent UTI:
Completed course of treatment
Repeated UA completely clear
Chronic kidney disease stage IIIb:
Avoid nephrotoxic
Monitor renal function
DVT prophylaxis:
SCDs
CODE STATUS:
Full code
Total time spent to see the patient, examine the patient, review data and lab results, discuss treatment plan with patient, nursing staff around 55 minutes
Anticipated Discharge: Within 24 hours
Subjective/Interval History
-
Date of Service: May 11, 2025
No chest pain
No sob
No fevers
Objective Data
-
Labs:
Laboratory Results
05/11/25
03:30
WBC 5.3
Hgb 11.8 L
Hct 36.9 L
Plt Count 149
Sodium 141
Potassium 3.5
Chloride 109 H
Carbon Dioxide 24
BUN 24 H
Creatinine 1.3 H
Glucose 154 H
Calcium 8.5
Vital Signs:
Vital Signs
Temp Pulse Resp BP Pulse Ox
98 F 66 18 169/46 99
05/11/25 06:56 05/11/25 09:00 05/11/25 06:56 05/11/25 08:43 05/11/25 06:56
I&O
05/10/25 05/11/25 05/12/25
06:59 06:59 06:59
Intake Total 100 / 100 1080 / 1080
Output Total 650 / 650 700 / 700
Balance -550 / -550 380 / 380
--- NOTE | 2025-05-11 09:29 | W.PN.CARDCBS ---
Today's Communication / Plan
-
Increase losartan to 50 mg twice daily if stable blood pressure, okay for DC from CV standpoint
Recommend outpatient lab work
Recommend close follow-up with primary care/primary cardiology as outpatient additional medication adjustment
If remains hypertensive, consider Aldactone
Impression / Plan
-
Primary Brass Roller: Previously Dr. Zhou, most recently Dr. Reyes
Assessment:
Presentation to [facility] 05/03/25 with CP, dyspnea
UTI
CAD
Remote [place] in 1982 without revascularization
Chronic angina
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
Paroxysmal atrial fibrillation
Chronic amiodarone therapy
Not anticoagulation candidate given chronic anemia, frequent falls
MDS requiring periodic transfusions
Chronic heart failure with preserved EF
Moderate to severe
Hypothyroidism
Hypertension
Hyperlipidemia
DM2
CKD
Recurrent diverticulitis status post partial colon resection
Fall with left knee fracture status postrepair
Bilateral total hip replacements
Recent parainfluenza requiring admission to [facility] 03/2025
Myoview stress test 05/06/2025: Resting study only performed on patient. After injection, patient developed 8/10 chest pressure and dyspnea with EKG changes. Resting imaging showed evidence of dense apical defect at rest
Cardiac catheterization 05/06/2025: Disease involving distal left main, FOOTWEAR SALES LEADER of LAD with good left to left and left to right collaterals, mid circumflex and OM 3, RCA with moderate to severe low-grade
Echocardiogram 05/04/2025: EF 55 to 60%, grade 2 diastolic dysfunction, abnormal apex, moderate , moderate thickening and calcification of posterior mitral valve leaflet with mild MS
Echo 05/07/2025 with [facility]: EF 40-45%, mod-severe LVH. Moderate MS w/ mean grad 5 mmhg. Moderate peak/mean 32/19 mmhg w/ YARELIS 1.2cm2. No aortic regurgitation.
Plan:
She feels better. She denies chest pain or dyspnea.
Her volume status is improved compared to yesterday, but her weight is unchanged. Yesterday we had switched from p.o. to IV furosemide. Will continue IV furosemide through today and probably switch back to furosemide 40 mg p.o. twice daily
tomorrow. Jardiance has been restarted. 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
She is still hypertensive. Losartan was restarted yesterday. Increase losartan to 50 mg twice daily.
Hemoglobin is 10.7 and she seems to be tolerating DAPT.
If still hypertensive, with relatively low potassium low-dose spironolactone might be a good option
Will reassess in a.m., hopefully for discharge.
History of Present Illness 05/08/2025:
Patient is an 89-year-old female with past medical history of [place] in 1982 without revascularization, paroxysmal atrial fibrillation on chronic amiodarone, MDS requiring periodic transfusions, not anticoagulated due to MDS and frequent falls, chronic
heart failure with preserved EF, moderate to severe , recent parainfluenza, hypothyroidism, who is followed by [facility] cardiology. She then presented to [facility] on 05/03/2025 with chest discomfort and shortness of breath. Initially acute
on chronic symptomatic anemia was felt to be etiology of her symptoms and received transfusion. GI had also evaluated patient and she was not felt to have any active GI bleeding. As troponins were significantly elevated, she underwent stress
testing which was noted to be abnormal with patient complaining of chest discomfort and dyspnea during the test. She then underwent cardiac catheterization by Dr. Cronin on 05/06/2025 which revealed multivessel coronary artery disease including
significant distal left main stenosis, LAD FOOTWEAR SALES LEADER with good left to left and left to right collaterals, significant mid circumflex/OM 3 disease, RCA disease and moderate to severe low gradient . Due to this patient was transferred to [facility] last
evening for evaluation of treatment options for MV CAD and . She denies current chest pain or shortness of breath. Currently receiving blood transfusion, hemoglobin 7.2 on 05/07.
Progress Note - Brass Roller
Subjective
Date of Service: May 11, 2025
Patient seen and examined. No acute events overnight. Patient resting comfortably in chair. Patient denies any chest pain, palpitations, weakness. Notes shortness of breath much improved. Telemetry demonstrates sinus rhythm.
Objective
Labs:
05/11/25 03:30
05/11/25 03:30
Labs
Hgb 11.8 g/dL (12.0-16.0) L 05/11/25 03:30
Hct 36.9 % (37.0-47.0) L 05/11/25 03:30
Plt Count 149 10^3/uL (130-400) 05/11/25 03:30
APTT Cancelled 05/08/25 10:45
Sodium 141 mmol/L (135-145) 05/11/25 03:30
Potassium 3.5 mmol/L (3.5-5.1) 05/11/25 03:30
BUN 24 mg/dl (7-17) H 05/11/25 03:30
Creatinine 1.3 mg/dL (0.6-1.0) H 05/11/25 03:30
Glucose 154 mg/dl (70-99) H 05/11/25 03:30
Vital Signs and I&O:
Vital Signs
Temp Pulse Resp BP Pulse Ox
98 F 66 18 169/46 99
05/11/25 06:56 05/11/25 09:00 05/11/25 06:56 05/11/25 08:43 05/11/25 06:56
Vital Signs
Temp Pulse Resp BP Pulse Ox
98 F 66 18 169/46 99
05/11/25 06:56 05/11/25 09:00 05/11/25 06:56 05/11/25 08:43 05/11/25 06:56
Intake & Output
05/09/25 05/10/25 05/11/25 05/12/25
06:59 06:59 06:59 06:59
Intake Total 1210 / 1210 100 / 100 1080 / 1080
Output Total 400 / 400 650 / 650 700 / 700
Balance 810 / 810 -550 / -550 380 / 380
Physical Exam
Physical Exam
GENERAL: no acute distress
EYE: sclera anicteric
NECK: Supple, no JVD, no carotid bruit appreciated
ENT: normal nose, moist mucosal membranes
CARDIAC: Regular rate and rhythm, +S1/S2, no rubs, or gallops; 3/6 systolic ejection murmur
CHEST/PULMONARY: Normal effort, clear breath sounds
ABDOMEN: Soft, without focal tenderness or distention
NEUROLOGICAL: Alert and oriented x3
SKIN: Warm and dry, no rash
PSYCH: Normal and appropriate interaction.
[2025-05-11] MEDS: COZAAR 50 MG PO (10:02)
[2025-05-11 13:09] LABS: Glucose - Point of Care 163 mg/dl (70-99)
[2025-05-11] MEDS: NOVOLOG FLEXPEN-LOW RESISTANCE 1 UNITS SC ×2 (13:12→17:07)
--- NOTE | 2025-05-11 14:58 | W.DCSUMMARY ---
Discharge Summary
Discharge Data
Date of Admission: 05/07/25
Date of Discharge: 05/11/25
-
Pending Results: No
Hospital Course
89 years old female who was transferred from [facility] for evaluation of management of coronary disease and aortic valve disease. Patient underwent cardiac catheterization on May 06 at [facility] that showed multivessel
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 Upon arrival to [facility], she did not have active chest pain. Patient was diagnosed with non-ST elevation myocardial infarction and acute on chronic anemia.
Patient was given blood transfusion. Goal to keep hemoglobin more than 8. Calf Skinner discussed with patient and her family regarding options of treatment. In light of her myelodysplastic syndrome and chronic anemia, goal was to avoid severe
anemia and to minimize bleeding risk. [employer] Rep[employer] Laborer was consulted and felt there was no contraindication for antiplatelet/anticoagulation therapy from myelodysplastic syndrome perspective. Patient was started on dual antiplatelet therapy and the
goal was to monitor her counts in the outpatient setting. Patient was not able to make final decision regarding consideration of high risk percutaneous coronary intervention. The option was to discuss further management in the outpatient setting.
Patient was deemed a poor candidate for bypass surgery and she declined coronary artery bypass graft surgery. Patient was noted to have elevated blood pressure and bradycardia. Toprol dose was reduced from 100 mg twice a day to 50 mg twice a day.
Losartan was increased to 50 mg twice a day. Due to combination of Plavix and aspirin, omeprazole was discontinued and she was started on Pepcid for acid reflux treatment. Patient remained hemodynamically stable. Calf Skinner will follow-up with
patient in outpatient setting. Patient was discharged home in a stable condition.
Discharge Plan
-
Patient Disposition: Home with Home Care
Discharge Diagnosis/Procedures: CAD
Anemia
High blood pressure
You are seen by claims adjuster. You were started on dual antiplatelet therapy with aspirin and Plavix. We reduced Toprol dose to 50 mg twice a day because of low heart rate.
We increased dose of losartan because of elevated blood pressure.
We stopped omeprazole to avoid interaction between Plavix and aspirin. Take Pepcid as replacement for acid reflux.
You will need to see your claims adjuster in 1 to 2 weeks. Make sure to call and make appointment.
Do blood work including CBC and basic metabolic panel to monitor your blood count, electrolytes and kidney function
Condition: Good
Diet: Regular
Blood Work: BMP and CBC in one week
Referrals:
[facility] Briones Visiting Nurse [Outside]
Mely Campuzano MD [Family Provider, Internal Medicine] - in one to two weeks
Prescriptions:
New
losartan 50 mg Tablet
50 mg PO BID Qty: 60 0RF
clopidogrel 75 mg Tablet
75 mg PO DAILY Qty: 30 0RF
metoprolol succinate 50 mg Tablet Extended Release 24 Hr
50 mg PO BID Qty: 60 0RF
famotidine [Pepcid] 20 mg tablet
20 mg PO BID Qty: 60 0RF
Continued
atorvastatin 40 mg Tablet
40 mg PO DAILY
amiodarone 200 mg Tablet
200 mg PO DAILY
furosemide 40 mg Tablet
40 mg PO BID
isosorbide mononitrate 60 mg Tablet Extended Release 24 Hr
60 mg PO DAILY
Jardiance 10 mg Tablet
10 mg PO DAILY
cyanocobalamin (vitamin B-12) [Vitamin B-12] 1,000 mcg Tablet
1,000 mcg PO 1XD
aspirin 81 mg Capsule
81 mg PO DAILY
Discontinued
omeprazole 40 mg Capsule,Delayed Release(Dr/Ec)
40 mg PO 1XD
losartan 50 mg Tablet
50 mg PO DAILY
metoprolol succinate 100 mg Capsule,Sprinkle,Er 24hr
100 mg PO Q12H
Discharge Orders:
Discharge Patient (As Directed); Ordered 05/11/25
Ordered By: Aniya Perez
Care Plan Goals
Care Plan Goals:
Problem: Readiness for enhanced knowledge related to diagnosis and treatment plan
Goal: Understand your diagnosis and treatment plan needs, including medications if applicable.
Instructions: Know your diagnosis, underlying causes and treatment plan options, including medications if applicable. Consult with your health care team to learn about your diagnosis and treatment plan, including medications if applicable.
Discharge Date and Time
Discharge Date/Time: 05/11/25 18:04
Print Language: YI
--- NOTE | 2025-05-11 15:27 | PTCARENOTE ---
Pt safely ambulating in hallway with rolling walker and steady gait. Pt has no complaints pain/discomfort. Tele- SR. Assessment completed as documented. Currently OOB in chair; call dipak w/in reach.
[2025-05-11 16:59] LABS: Glucose - Point of Care 170 mg/dl (70-99)
--- NOTE | 2025-05-11 17:53 | PTCARENOTE ---
IV and tele removed. Belongings collected and sent home w/ pt. Discharge instructions reviewed w/ pt and verbalizes understanding. Escorted via WC to home w/ family. D/c to home w/ [facility] services.
== END 2025-05-11 18:04 | disposition home health service (06) | DRG 281 ==
LOC: IVU 00:15
PROVIDERS: Hospitalist; Internal Medicine Interventional Cardiology; Physician Assistant Medical; ADMITTING PHYSICIAN Hospitalist; ATTENDING PHYSICIAN Internal Medicine; FAMILY PHYSICIAN Student in an Organized Health Care Education/Training Program; OTHER PHYSICIAN Internal Medicine Cardiovascular Disease; OTHER PHYSICIAN Internal Medicine Hematology & Oncology
PROC: 30233N1 Transfusion of Nonautologous Red Blood Cells into Peripheral Vein, Percutaneous Approach (ICD-10-PCS; 2025-05-07)
DX: I21.4 Non-ST elevation (NSTEMI) myocardial infarction (principal); I13.0 Hypertensive heart and chronic kidney disease with heart failure and stage 1 through stage 4 chronic kidney disease, or unspecified chronic kidney disease; I50.32 Chronic diastolic (congestive) heart failure; D63.0 Anemia in neoplastic disease; I25.10 Atherosclerotic heart disease of native coronary artery without angina pectoris; D46.9 Myelodysplastic syndrome, unspecified; I06.2 Rheumatic aortic stenosis with insufficiency; I48.0 Paroxysmal atrial fibrillation; N18.30 Chronic kidney disease, stage 3 unspecified; E03.9 Hypothyroidism, unspecified; E11.22 Type 2 diabetes mellitus with diabetic chronic kidney disease; E78.5 Hyperlipidemia, unspecified; H40.9 Unspecified glaucoma; K21.9 Gastro-esophageal reflux disease without esophagitis; R29.6 Repeated falls; Z79.82 Long term (current) use of aspirin; Z87.891 Personal history of nicotine dependence; Z79.899 Other long term (current) drug therapy
CPT/HCPCS: 80048; 80061; 81003; 82962; 83036; 83735; 83880; 84439; 84443; 84484; 85025; 85027; 85730; 86850; 86900; 86901; 86920; 93005; 93306; 97162; 97166; P9016; Q9950